=== PATIENT | female | born 1985 | race Caucasian/White ===

== ENCOUNTER → 2017-05-03 13:17 | Outpatient (CLI) | payer BC, SELFPAY ==
[2017-04-30 16:11] VITALS: BP 129/81
--- NOTE | 2017-05-03 13:55 | US_ITS ---
STUDY: FIRST TRIMESTER OBSTETRICAL ULTRASOUND REASON FOR EXAM: Female, 31 years old. Threatened . LMP: February 21, 2017. TECHNIQUE: Transvaginal PRIOR ULTRASOUND: None. FINDINGS: There is visualization of a single gestational sac in a normal intrauterine position. The mean sac diameter (MSD) measures 1.59 cm, indicating an estimated gestational age (EGA) of 6 weeks, 3 days. The gestational sac has an irregular oblong shape. There is no demonstrated yolk sac. The placenta is non-visualized. There is visualization of an embryo with no cardiac activity, consistent with intrauterine demise. The crown-rump length (CRL) measures 5 mm, indicating an estimated gestational age (EGA) of 60 weeks, 3 days. No embryonic cardiac activity noted. The estimated gestation age (EGA) by US is 6 weeks, 3 days. The estimated date of delivery (IRINA) by US is December 24, 2017.. The uterus measures 9.6 cm x 6.1 cm x 4.4 cm. There is no demonstrated uterine fibroid. The cervix is closed. The right ovary measures 2.7 cm x 1.8 cm 1.6 cm.. There is a 5 cm x 4.4 cm x 3.4 cm right ovarian cyst. The left ovary measures 3.5 cm x 3.6 cm x 3.2 cm. There is a 2.6 cm x 2.2 cm by 2.1 cm cyst in the ovary. There is no visualized left adnexal mass or complex lesion. There is no fluid in the cul de sac. US/Transvaginal w/Preg US IMPRESSION: Irregular intrauterine gestational sac with evidence of demise. Bilateral ovarian cysts more prominent on the right side. Electronically Signed: Rodger Davis MD at 15:13 EST Tel [phone], Service support ,
== END ==
PROVIDERS: Family Provider Family Medicine; PCP Family Medicine; Visit Provider Obstetrics & Gynecology
DX: O20.0 Threatened abortion (principal); Z3A.00 Weeks of gestation of pregnancy not specified
CPT/HCPCS: 76817

== ENCOUNTER 2017-05-10 14:59 | Day surgery (SDC) | payer BC, SELFPAY ==
[2017-04-30 16:11] VITALS: BP 129/81
[2017-05-08 10:18] LABS: Hematocrit 38.5 % (37-47); Hemoglobin 13.5 g/dl (12.0-15.0); Mean Corp Hgb Conc 35.1 g/gl (32-36); Mean Corpuscular Hgb 29.2 pg (27.0-32.0); Mean Corpuscular Volume 83.3 fL (81-99); Mean Platelet Vol. 9.8 fl (6.2-12.0); Platelet Count 256 K/mm3 (150-450); RBC Distribution Width CV 12.7 % (11.6-14.6); RBC Distribution Width SD 38.5 fl (35.1-43.9); Red Blood Count 4.62 M/mm3 (4.2-5.4); White Blood Count 7.2 K/mm3 (4.4-11.0)
[2017-05-08 10:42] LABS: Scan Indicated on CBC? Y/N NO
[2017-05-10] VITALS (7 sets, daily range): BP systolic 117–142; BP diastolic 65–81; PULSE 81–109; RESP 16–18; TEMP 36.9–37.2; O2SAT 96–100; BMI 35.2
[2017-05-10] MEDS: Doxycycline 100 MG CAPSULE PO (15:41)
--- NOTE | 2017-05-10 16:53 | PCM.OPRPT ---
Problem List (1) Missed Status: Acute Report of Operation Date of Procedure: 05/10/17 Pre-Operative Diagnosis: missed ab Post-Operative Diagnosis: same Surgery/Procedure Performed:: suction d and c Description of Surgical Findings:: 8 week missed ab Type of Anesthesia:: Local MAC Specimen's removed: poc Estimated Blood Loss (mL): 100 Fluids Replaced: crystalloid Description of Procedure: Patient was evaluated preoperatively and found to have a missed at 8 weeks of with no pole or yolk sac seen with no heart tones seen. She was followed for 2 weeks and still no yolk sac or pole developed patient was counseled and offered medical management versus surgical and patient chose suction D&C. Patient received IV anesthesia was prepped and draped in normal sterile fashion in the dorsal lithotomy position. Cervix was grasped with ring forceps and previously dilated to allow passage of a 9 mm suction curette. Uterus sounded 10 cm. Multiple passes were made with the suction curette to remove products of conception and then sharp curettage was formed to confirm all removal of packs of conception. All instruments were removed from the vagina and patient was awoken and taken recovery in stable condition. - Admit VTE Documentation VTE Present on Admission: No VTE Mechan Device Prophylaxis: SCD's
--- NOTE | 2017-05-10 16:56 | PCM.DC.D&C ---
Discharge Diet: No Restrictions Discharge Activity: Return to Normal Activity, May Shower, May Take a Tub Bath Allergies/Adverse Reactions: Allergies No Known Allergies Allergy (Verified 05/07/17 08:33) Medications to take at Discharge vitamin,calcium,uhnbygyw-cqnf-gpxsc acid tablet 1 tab PO ONCE 04/07/17 RhoGAM Ultra-Filtered PLUS 1,500 unit (300 mcg) intramuscular syringe 1,500 unit IM ONCE #1 NS 04/30/17 Primary Care Physician: Eduardo Yeung MD [Primary Care Provider] - Please Follow Up With: Regi Quevedo MD - [phone]
--- NOTE | 2017-05-11 | POC_PTH ---
PATIENT: ADRIAN VIRGEN LOC: [facility] [place][id number] AGE/SX: 31/F ROOM: RE05/10/[address]: Dr. Regi Quevedo MD : 1985 BED: DIS: 05/10/2017 SPEC #: [id number] RECD: 05/11/17 14:31 STATUS: FLORY DESMOND #: [id number] JAVIER: 05/11/17 00:[address]: Regi Quevedo DEPT: SURGICAL PATHOLOGY RECD BY: Prakash Moore ENTERED: 05/11/17 14:31 SP TYPE: PROD CONC OTHR DR: Dr. Eduardo Yeung MD Tissues: Product of conception, NOS Procedures: Surgery Specimen Level IV HEADER OPERATION: Dilation and curettage, suction PRE-OP DIAGNOSIS: Missed TISSUE SUBMITTED: Products of conception MICROSCOPIC DIAGNOSIS Endometrium, curettage: Chorionic villi, decidualized stroma and trophoblastic cells consistent with products of conception. AM:nicole 05/12/17 MICROSCOPIC DESCRIPTION Slides are reviewed. GROSS DESCRIPTION Received in fixative is one container labeled with the patient's name and designated products of conception. The specimen consists of multiple irregular fragments of light pink-rousseau soft tissue that in aggregate measure 7 x 5.5 x 0.6 cm. parts are not grossly recognized. Automation Machine Builder portions are submitted in one cassette. / AM:nicole 05/11/17 TC:5 CPT: 03116
== END 2017-05-10 18:19 | disposition home or self-care (01) ==
LOC: SDC 14:59 → AC 15:03
PROVIDERS: Family Provider Family Medicine; PCP Family Medicine; Visit Provider Obstetrics & Gynecology
PROC: (CPT 59820; principal; 2017-05-10 16:15)
DX: O02.1 Missed abortion (principal); J45.909 Unspecified asthma, uncomplicated; K21.9 Gastro-esophageal reflux disease without esophagitis; F32.9 Major depressive disorder, single episode, unspecified; Z3A.08 8 weeks gestation of pregnancy
CPT/HCPCS: 59820; 36415; 85027; 86850; 86870; 86900; 88305; J7120

== ENCOUNTER → 2018-01-20 13:59 | Outpatient (CLI) | payer BC, SELFPAY ==
[2018-01-20 14:26] LABS: Absolute Lymphocyte Count 2.67 X10^3/ul (0.83-4.51); Absolute Neutrophil Count 8.7 X10^3/uL (2.0-7.7); Basophil# 0.03 X10^3/uL; Basophil% 0.2 % (0-1); Eosinophil# 0.08 X10^3/uL; Eosinophils% 0.7 % (0-5); Hematocrit 37.3 % (37-47); Hemoglobin 13.5 g/dl (12.0-15.0); Lymphocyte # 2.67 X10^3/ul (4.0); Mean Corp Hgb Conc 36.2 g/gl (32-36); Mean Corpuscular Hgb 29.9 pg (27.0-32.0); Mean Corpuscular Volume 82.7 fL (81-99); Mean Platelet Vol. 10.1 fl (6.2-12.0); Monocyte# 0.59 X10^3/uL; Monocyte% 4.9 % (0-10); Neutrophil % 71.9 % (47-70); POSITIVE COUNT NO; POSITIVE DIFFERENTIAL NO; POSITIVE MORPHOLOGY NO; Platelet Count 277 K/mm3 (150-450); RBC Distribution Width CV 12.1 % (11.6-14.6); Red Blood Count 4.51 M/mm3 (4.2-5.4); White Blood Count 12.1 K/mm3 (4.4-11.0)
[2018-01-20 14:38] LABS: Glucose Challenge Gest 1H 50g 110 mg/dL (70-140)
[2018-01-20 15:29] LABS: HIV - WCH Non-Reactive (Nonreactive); Rubella IgG > 500.0 IU/mL
[2018-01-20 20:50] LABS: Chlamydia Trachomatis by PCR Negative (Negative); Neisserai gonorrhoeae by PCR Negative (Negative); Probe Check PASS; Sample Adequacy Control PASS; Specimen Processing Control PASS
[2018-01-21 04:14] LABS: Rapid Plasmin Reagin (RPR) NONREACTIVE (NONREACTIVE)
[2018-01-21 16:25] LABS: HEPATITIS B SURFACE AG Negative (Negative)
== END ==
PROVIDERS: Family Provider Family Medicine; PCP Family Medicine; Referring Provider Obstetrics & Gynecology; Visit Provider Obstetrics & Gynecology
DX: Z34.90 Encounter for supervision of normal pregnancy, unspecified, unspecified trimester (principal)
CPT/HCPCS: 36415; 82950; 85025; 86592; 86703; 86762; 86850; 86900; 87086; 87088; 87340; 87491; 87591

== ENCOUNTER → 2018-02-16 12:23 | Outpatient (CLI) | payer BC, SELFPAY ==
[2018-02-16 11:47] VITALS: BMI 35.4
== END ==
PROVIDERS: Family Provider Family Medicine; PCP Family Medicine; Referring Provider Obstetrics & Gynecology; Visit Provider Obstetrics & Gynecology
DX: Z36.9 Encounter for antenatal screening, unspecified (principal)
CPT/HCPCS: 36415

== ENCOUNTER → 2018-03-04 10:01 | Outpatient (CLI) | payer BC, SELFPAY ==
[2018-02-16 11:47] VITALS: BMI 35.4
== END ==
PROVIDERS: Family Provider Family Medicine; PCP Family Medicine; Visit Provider Obstetrics & Gynecology
DX: Z36.9 Encounter for antenatal screening, unspecified (principal)
CPT/HCPCS: 36415

== ENCOUNTER → 2018-04-11 12:22 | Outpatient (CLI) | payer BC, SELFPAY ==
[2018-04-11 11:49] VITALS: BMI 35.4
--- NOTE | 2018-04-11 12:22 | CT_ITS ---
STUDY: CT ABDOMEN AND PELVIS WITH CONTRAST REASON FOR EXAM: Female, 32 years old. Pelvic pain. Right ovarian cyst. . Scan approved by DIRECTOR GLOBAL MARKET RESEARCH and on-site radiologist. RADIATION DOSAGE (If Supplied By Facility): CTDIvol = ( 16.29 ) mGy, DLP = ( 1145.84 ) mGycm TECHNIQUE: Transaxial images were obtained from the dome of the diaphragm to the symphysis pubis without oral contrast. 100ml ml of Isovue 300 contrast was administered. Sagittal and coronal images were reconstructed. Individualized dose optimization techniques were used for this CT. COMPARISON: None. FINDINGS: The visualized lung bases are clear. The visualized portions of the heart and pericardium are within normal limits. There are no calcified gallstones present. There are subcentimeter hypodensities in the liver which are too small to characterize. However, these likely represent cysts. The spleen is normal in size. The pancreas is within normal limits. The adrenal glands are within normal limits. There are no renal or ureteral stones. There is no hydronephrosis. There are no focal renal lesions. Normal visualized stomach. There is no bowel obstruction or inflammation. The appendix is visualized and appears normal. The aorta is normal in caliber. There is right lower quadrant mesenteric lymphadenopathy noted. There is no free air, free fluid or fluid collection. There is a 4.6 x 4.2 cm cyst arising from the right ovary. There is a gravid uterus noted. There are no destructive osseous lesions. CT/Abdomen/Pelvis WITH Contrast IMPRESSION: Gravid uterus. Please note that this examination does not evaluate the fetus. 4.2 x 4.6 cm right ovarian cyst. Right lower quadrant mesenteric lymphadenopathy. This may represent mesenteric adenitis. No bowel obstruction or inflammation. Normal appendix. Normal kidneys. No hydronephrosis. No calcified gallstones. Electronically Signed: Buddy Goodwin, at 15:09 EST Tel , Service support ,
[2018-04-11 13:52] LABS: Absolute Lymphocyte Count 1.41 X10^3/ul (0.83-4.51); Absolute Neutrophil Count 13.3 X10^3/uL (2.0-7.7); Basophil# 0.02 X10^3/uL; Basophil% 0.1 % (0-1); Eosinophil# 0.02 X10^3/uL; Eosinophils% 0.1 % (0-5); Hematocrit 38.7 % (37-47); Hemoglobin 13.6 g/dl (12.0-15.0); Lymphocyte # 1.41 X10^3/ul (4.0); Lymphocyte % 9.1 % (19-41); Mean Corp Hgb Conc 35.1 g/gl (32-36); Mean Corpuscular Volume 85.2 fL (81-99); Mean Platelet Vol. 10.6 fl (6.2-12.0); Monocyte# 0.64 X10^3/uL; Monocyte% 4.1 % (0-10); Neutrophil # 13.32 X10^3/uL (2.7-7.7); Neutrophil % 86.3 % (47-70); Platelet Count 276 K/mm3 (150-450); RBC Distribution Width CV 12.8 % (11.6-14.6); RBC Distribution Width SD 38.6 fl (35.1-43.9); Red Blood Count 4.54 M/mm3 (4.2-5.4); White Blood Count 15.5 K/mm3 (4.4-11.0)
[2018-04-11 14:11] LABS: POSITIVE COUNT NO; POSITIVE DIFFERENTIAL NO; POSITIVE MORPHOLOGY NO
== END ==
PROVIDERS: Family Provider Family Medicine; PCP Family Medicine; Referring Provider Nurse Practitioner Women's Health
DX: O26.899 Other specified pregnancy related conditions, unspecified trimester (principal); R10.31 Right lower quadrant pain
CPT/HCPCS: 36415; 74177; 85025; Q9967

== ENCOUNTER → 2018-04-11 16:18 | Outpatient (CLI) | payer BC, SELFPAY ==
[2018-04-11 11:49] VITALS: BMI 35.4
--- NOTE | 2018-04-11 16:20 | US_ITS ---
STUDY: SECOND AND THIRD TRIMESTER OBSTETRICAL ULTRASOUND - LIMITED REASON FOR EXAM: Female, 32 years old. Lower pelvic pain. LMP: 11/16/2017 PRIOR ULTRASOUND: None. TECHNIQUE: Transabdominal ultrasound evaluation was performed. FINDINGS: There is a single intrauterine fetus. The fetus is in a cephalic presentation. There is demonstrated cardiac activity with a heart rate of 150 bpm. There is a normal amniotic fluid volume. The placenta is anterior in location and is not low lying. There are Grade 0 placental changes. The cervix measures 3.6 cm in length. BIOMETRY: BPD: 4.87: 20 weeks, 6 days HC: 18.69: 21 weeks, 1 days AC: 15.47: 20 weeks, 5 days FL: 3.27: 20 weeks, 2 days The left ovary measures 3.4 x 2.2 x 1.5 cm and is normal in echotexture. There is normal Doppler flow demonstrated to the left ovary. The right ovary measures 6.4 x 5.6 x 4.0 cm. There is a 4.9 x 4.4 cm complex cyst in the right ovary. There is normal Doppler flow demonstrated to the right ovary. age by current US: 20 weeks, 6 days. IRINA by current US: 08/23/2018. Estimated weight: 359 grams, +/- 52 grams, 28 percentile. US/OB Limited With Biometrics IMPRESSION: Single live intrauterine gestation at approximately 20 weeks and 6 days based on the current ultrasound. 4.9 x 4.4 cm complex cyst in the right ovary. Electronically Signed: Buddy Goodwin, at 18:07 EST Tel , Service support ,
== END ==
PROVIDERS: Family Provider Family Medicine; PCP Family Medicine; Referring Provider Nurse Practitioner Women's Health; Visit Provider Nurse Practitioner Women's Health
DX: R10.31 Right lower quadrant pain (principal); R10.2 Pelvic and perineal pain
CPT/HCPCS: 76816; 87086; 87088

== ENCOUNTER → 2018-05-31 11:18 | Outpatient (CLI) | payer BC, SELFPAY ==
[2018-05-31 11:02] VITALS: BMI 35.4
[2018-05-31 12:08] LABS: Absolute Lymphocyte Count 1.66 X10^3/ul (0.83-4.51); Absolute Neutrophil Count 8.3 X10^3/uL (2.0-7.7); Basophil# 0.02 X10^3/uL; Basophil% 0.2 % (0-1); Eosinophil# 0.09 X10^3/uL; Eosinophils% 0.9 % (0-5); Hematocrit 34.6 % (37-47); Hemoglobin 11.9 g/dl (12.0-15.0); Lymphocyte # 1.66 X10^3/ul (4.0); Lymphocyte % 15.7 % (19-41); Mean Corp Hgb Conc 34.4 g/gl (32-36); Mean Corpuscular Hgb 29.8 pg (27.0-32.0); Mean Corpuscular Volume 86.7 fL (81-99); Mean Platelet Vol. 9.6 fl (6.2-12.0); Monocyte# 0.44 X10^3/uL; Monocyte% 4.2 % (0-10); Neutrophil # 8.33 X10^3/uL (2.7-7.7); Neutrophil % 78.7 % (47-70); Platelet Count 238 K/mm3 (150-450); RBC Distribution Width CV 13.1 % (11.6-14.6); RBC Distribution Width SD 41.7 fl (35.1-43.9); Red Blood Count 3.99 M/mm3 (4.2-5.4); White Blood Count 10.6 K/mm3 (4.4-11.0)
[2018-05-31 12:10] LABS: POSITIVE COUNT NO; POSITIVE DIFFERENTIAL NO; POSITIVE MORPHOLOGY NO
[2018-05-31 12:31] LABS: Glucose Challenge Gest 1H 50g 105 mg/dL (70-140)
== END ==
PROVIDERS: Family Provider Family Medicine; PCP Family Medicine; Referring Provider Nurse Practitioner Women's Health; Visit Provider Nurse Practitioner Women's Health
DX: Z34.90 Encounter for supervision of normal pregnancy, unspecified, unspecified trimester (principal)
CPT/HCPCS: 36415; 82950; 85025; 86850; 86900

== ENCOUNTER → 2018-07-28 15:59 | Outpatient (CLI) | payer BC, SELFPAY ==
[2018-07-28 09:10] VITALS: BMI 35.4
== END ==
PROVIDERS: Family Provider Family Medicine; PCP Family Medicine; Referring Provider Nurse Practitioner Women's Health; Visit Provider Nurse Practitioner Women's Health
DX: Z34.90 Encounter for supervision of normal pregnancy, unspecified, unspecified trimester (principal)
CPT/HCPCS: 87077; 87081; 87186

== ENCOUNTER 2018-08-21 22:43 | Inpatient (IN) | payer BC, SELFPAY ==
[2018-07-12 11:40] VITALS: BMI 35.4
[2018-08-17 10:09] VITALS: BMI 38.0
[2018-08-21 23:09] VITALS: BMI 38.5
[2018-08-21] MEDS: Lactated Ringers 1,000 ML 50 ML IV (23:24)
[2018-08-21 23:34] LABS: Absolute Lymphocyte Count 1.86 X10^3/ul (0.83-4.51); Absolute Neutrophil Count 10.4 X10^3/uL (2.0-7.7); Basophil# 0.01 X10^3/uL; Basophil% 0.1 % (0-1); Eosinophil# 0.07 X10^3/uL; Eosinophils% 0.5 % (0-5); Hematocrit 36.3 % (37-47); Hemoglobin 12.7 g/dl (12.0-15.0); Lymphocyte # 1.86 X10^3/ul (4.0); Lymphocyte % 14.2 % (19-41); Mean Corpuscular Hgb 28.5 pg (27.0-32.0); Mean Corpuscular Volume 81.4 fL (81-99); Mean Platelet Vol. 11.4 fl (6.2-12.0); Monocyte# 0.73 X10^3/uL; Monocyte% 5.6 % (0-10); Neutrophil # 10.36 X10^3/uL (2.7-7.7); Neutrophil % 79.4 % (47-70); Platelet Count 269 K/mm3 (150-450); RBC Distribution Width CV 13.2 % (11.6-14.6); RBC Distribution Width SD 37.9 fl (35.1-43.9); Red Blood Count 4.46 M/mm3 (4.2-5.4); White Blood Count 13.1 K/mm3 (4.4-11.0)
[2018-08-21 23:38] LABS: POSITIVE COUNT NO; POSITIVE DIFFERENTIAL NO; POSITIVE MORPHOLOGY NO
[2018-08-21 23:44] LABS: AST(SGOT) 21 U/L (15-37); Alanine Aminotransfer ALT/SGPT 17 U/L (13-56); Creatinine, Serum 0.79 mg/dL (0.55-1.02); EST Glomerular Filtration Rate 90 mL/min (>60); Est Glom Filt Rate - Afr Amer 109 mL/min (>60); Estimated Creatinine Clearance 100.34 ml/min; Uric Acid 6.3 mg/dL (2.6-6.0)
[2018-08-22] MEDS: Lactated Ringers 1,000 ML 50 ML IV (00:40)
[2018-08-22] MEDS: fentaNYL-bupivacaine (epidural) 100 ML BAG EPIDURAL (00:42)
[2018-08-22 01:40] LABS: International Normalized Ratio 0.9; Partial Thromboplast Time 26.4 Seconds (24.1-36.2); Prothrombin Time (Protime)PT. 12.3 SECONDS (11.7-14.9)
[2018-08-22] MEDS: Oxytocin 30 units/NS 500 ml 30 UNITS/500 ML IV.SOLN 334 UNITS IV (01:49)
--- NOTE | 2018-08-22 02:17 | PCM.HP.OB ---
- Problem List (1) Active labor at term Status: Acute (2) Positive GBS test Status: Acute Comment: treat in labor (3) Depression with anxiety Status: Acute Comment: recommend counseling, ordered zoloft (4) screening encounter Status: Acute Comment: AFP negative (5) Obesity affecting Status: Acute Qualifiers: Comment: 1 tm glucola normal. discussed healthy weight gain recommendations (6) Status: Acute Qualifiers: Comment: sequential and anatomy scan desired. carrier screening declined. [facility] anatomy US scheduled (7) Family history of congenital heart defect Status: Acute Comment: nephew with abnormalities, nl echo (8) Rh negative status during Status: Acute Qualifiers: Comment: rhogam PRN (9) Supervision of normal Status: Acute Qualifiers: Comment: PRR IRINA 08/23/18 girl Vic History Date of Admission: 08/22/18 Final IRINA: 08/23/18 Gestational age: 39 Weeks and 6 Days History of this : This is a 32 year-old, , at 39 weeks gestational age presents IAL. she admits regular contractions for several hours, some bloody show but no lof. she has had an uncomplicated . Medical History: Medical History (Last Reviewed 08/17/18 @ 10:08 by Judy Lee) Depression F32.9 Surgical History: Surgical History (Last Reviewed 08/17/18 @ 10:08 by Judy Lee) H/O hemorrhoidectomy Z98.890 History of tonsillectomy and adenoidectomy Z98.890 History of wisdom tooth extraction, class II edentulism K08.492 history of cyst removal on right middle digit history of flex sig with hemmroid cardirazation Allergies No Known Allergies Allergy (Verified 08/17/18 10:08) Home Medications: Home Medications vitamin,calcium,xltnzaas-sqow-xxmbo acid tablet 1 tab PO ONCE 04/07/17 RhoGAM Ultra-Filtered PLUS 1,500 unit (300 mcg) intramuscular syringe 1,500 unit IM ONCE #1 NS 04/30/17 sertraline 50 mg tablet 50 mg PO QDAY #30 tab 05/12/18 nystatin 100,000 unit/gram topical powder 1 applic TOPICAL BID #30 g 08/17/18 Smoking Status: Never smoker Alcohol: None Number of Fetus(es): 1 Heart Tracins moderate variability reactive no decelerations category I tracing Mucarabones: regular History Past Pregnancies: Past Pregnancies Delivery Date Name GA/Weeks Outcome Route Weight Gender Labor Length Anesthesia Delivery Location Provider FOB Labs: Mom's Labs & Results 08/21/18 08/21/18 08/21/18 23:15 23:15 23:15 WBC 13.1 H RBC 4.46 Hgb 12.7 Hct 36.3 L MCV 81.4 MCH 28.5 MCHC 35.0 RDW 13.2 RDW Differential 37.9 Plt Count 269 MPV 11.4 Immature Gran % (Auto) 0.200 Neut % (Auto) 79.4 H Lymph % (Auto) 14.2 L Cr[place] % (Auto) 5.6 Eos % (Auto) 0.5 Baso % (Auto) 0.1 Absolute Neuts (auto) 10.4 H Absolute Lymphs (auto) 1.86 Total Counted Not Reportable PT Cancelled INR Cancelled APTT Cancelled Creatinine Estim Creat Clear Calc Est GFR (MDRD) Af Amer Est GFR (MDRD) Non-Af Uric Acid AST ALT Blood Type O NEGATIVE Antibody Screen NEGATIVE 08/21/18 08/22/18 23:15 01:20 WBC RBC Hgb Hct MCV MCH MCHC RDW RDW Differential Plt Count MPV Immature Gran % (Auto) Neut % (Auto) Lymph % (Auto) Cr[place]enden % (Auto) Eos % (Auto) Baso % (Auto) Absolute Neuts (auto) Absolute Lymphs (auto) Total Counted PT 12.3 INR 0.9 APTT 26.4 Creatinine 0.79 Estim Creat Clear Calc 100.34 Est GFR (MDRD) Af Amer 109 Est GFR (MDRD) Non-Af 90 Uric Acid 6.3 H AST 21 ALT 17 Blood Type Antibody Screen Course Did the patient receive Yes care? Labs Blood Type: O RH: NEGATIVE RPR/VDRL/Syphilis Nonreactive Rubella status Immune HbSAg Negative Date Done: 01/20/18 Chlamydia Negative Gonorrhea Negative HIV/AIDS Non-Reactive Group B Strep: Positive Current Obstetrical History Gestational Diabetes No Incompetent Cervix No Infertility No IUGR No Macrosomia No Hypertension/Pre-eclampsia No Placenta Previa/Abruption No PTL/PROM No Uterine anomaly No Oligohydramnios No Polyhydramnios No Multiple gestation No Past Medical History Asthma Yes: activity induced Diabetes No Hypertension No Heart disease No Mitral valve prolapse No Neurologic/Seizure disorder/ No Migraines Kidney disease No Liver disease No Varicosities No Clotting disorders/Hx of DVT No Thyroid Dysfunction No Other medical diseases No Psychiatric disorders Yes: depression Major trauma No Abnormal PAP smear No Sleep apnea No Mammogram in the last 2 years No Social History Marital Status: Alleged father Vic Hx Smoking No Smoking Status Never smoker Expected Delivery Method: Spontaneous Vaginal Review of Systems Constitutional: Denies: Fever, Malaise Eyes: Denies: Blurred vision, Vision Change HEENT: Denies: Head Aches, Visual Changes Cardiovascular: Denies: Chest Pain, Palpitations Respiratory: Denies: Cough, Shortness of Breath, Wheezing Gastrointestinal: Denies: Abdominal Pain, Diarrhea, Nausea, Vomiting Genitourinary: Denies: Dysuria, Hematuria Musculoskeletal: Denies: Joint Pain, Muscle pain Skin: Denies: Lesions, Rash Neurological: Denies: Blurred vision, Focal weakness, Headaches Psychiatric: Denies: Anxiety, Depression Endocrine: Denies: Heat/ Cold Intolerance Hematologic/ Lymphatic: Denies: Easy Bruising, Easy Bleeding Physical Exam General: Alert, Cooperative, No apparent distress HEENT: Atraumatic, Normocephalic. Negative for: Thyromegaly, Lymphadenopathy Cardiovascular: Regular rate Lungs: Normal air movement Abdomen: Soft, Non Tender, Gravid Neurological: Deep Tendon Reflexes 2+/4 and Symmetrical, Neuro grossly intact. Negative for: Clonus GRADUATE STUDENT INSTRUCTOR: Normal external genitalia. Negative for: Vulvar lesions Estimated gestational size: Appropriate for gestational size Presentation: Cephalic Cervix Dilation (cm): 5 Assessment/Plan All Active Problems (Last Reviewed 08/17/18 @ 10:08 by Judy Lee) Active labor at term (Acute) Positive GBS test (Acute) Depression with anxiety (Acute) screening encounter (Acute) Obesity affecting (Acute) (Acute) Family history of congenital heart defect (Acute) Rh negative status during (Acute) Supervision of normal (Acute) BMI 36.0-36.9,adult (Resolved) Missed (Resolved) Threatened in first trimester (Resolved) This is a 32 year-old, at 39 weeks gestational age presents IAL Patient presents IAL, plan expectant management for . arom clear fluid. Pain management: plans epidural. GBS positive plan IV PCN. Management of any complications: none I have reviewed the [facility] and made any clinically relevant updates.
[2018-08-22] MEDS: Oxytocin 30 units/NS 500 ml 30 UNITS/500 ML IV.SOLN 167 UNITS IV (02:19)
--- NOTE | 2018-08-22 02:20 | PCM.OPRPT ---
Problem List (1) Active labor at term Status: Acute (2) Positive GBS test Status: Acute Comment: treat in labor (3) Depression with anxiety Status: Acute Comment: recommend counseling, ordered zoloft (4) screening encounter Status: Acute Comment: AFP negative (5) Obesity affecting Status: Acute Qualifiers: Comment: 1 tm glucola normal. discussed healthy weight gain recommendations (6) Status: Acute Qualifiers: Comment: sequential and anatomy scan desired. carrier screening declined. M anatomy US scheduled (7) Family history of congenital heart defect Status: Acute Comment: nephew with abnormalities, nl echo (8) Rh negative status during Status: Acute Qualifiers: Comment: rhogam PRN (9) Supervision of normal Status: Acute Qualifiers: Comment: PRR IRINA 08/23/18 girl Vic Vaginal Delivery Maternal Presentation: Active Labor 32-year-old G2, P0 at 39 weeks 6 days presents in active labor Amniotic Membrane Rupture Type: Artificial Amniotic Fluid Description: Clear Final IRINA: 08/23/18 Gestational age: 39 Weeks and 6 Days Date of Procedure: 08/22/18 Pre-Operative Diagnosis: In active labor Post-Operative Diagnosis: Same Surgery/ Procedure Performed: Spontaneous Vaginal Delivery Type of Anesthesia: Epidural, Local with 1% lidocaine Description of Procedure: Patient began pushing and delivered the head in the PAT presentation. The head was delivered atraumatically and a loose nuchal cord ?1 was identified and easily reduced over the infant's head. The anterior and posterior shoulders delivered without complication followed by the rest of the infant and the infant was placed on the maternal abdomen. Delayed cord clamping was employed for approximately 60 seconds. Cord was clamped and cut and gentle traction was applied to the cord and the placenta delivered spontaneously immediately following it was noted to be intact with three-vessel cord. The perineum and vagina were inspected and noted to have a second-degree perineal laceration was repaired in the usual fashion with 3-0 Vicryl repeat. EBL was 400 cc. Patient and tolerated delivery well. Presentation: PAT Placental Delivery Description: Spontaneous Placenta Disposition: [facility] Cord Vessel Description: 3 Vessels Cord Entanglement: Around neck x 1, loose Estimated Blood Loss: 400 Infant A gender: Female Episiotomy Description: None Laceration: Perineal Extension/lac, 2nd degree Medications given after delivery: IV Pitocin Complications: None
[2018-08-22] MEDS: Acetaminophen 500 MG Tablet 1000 MG PO (05:51)
[2018-08-22 08:30] VITALS: BP 122/76; PULSE 76; RESP 18; TEMP 37.8
[2018-08-22 12:00] VITALS: BP 139/91; PULSE 77; RESP 16; TEMP 37.3
[2018-08-22 16:00] VITALS: BP 115/72; PULSE 68; RESP 18; TEMP 37.5
[2018-08-22] MEDS: Naproxen 250 MG Tablet 500 MG PO (17:45)
[2018-08-22 20:15] VITALS: BP 130/82; PULSE 72; RESP 16; TEMP 36.7
[2018-08-22 23:39] VITALS: BP 108/60; PULSE 80; RESP 16; TEMP 36.6
[2018-08-23 02:45] VITALS: BP 123/80; PULSE 69; RESP 16; TEMP 36.4
[2018-08-23] MEDS: Naproxen 250 MG Tablet 500 MG PO (02:52)
[2018-08-23 08:00] VITALS: BP 121/87; PULSE 68; RESP 18; TEMP 36.1
--- NOTE | 2018-08-23 08:05 | PCM.PN.OB ---
Patient Problems: Active and Suspected Problems (Last Reviewed 08/17/18 @ 10:08 by Judy Lee) Active labor at term (Acute) Subjective: doing well no complaints pain controlled no CP SOB N V ambulating well tolerating po lochia moderate, going well - Physical Exam General: Alert, Oriented x3 Abdomen: Soft, Non Tender, Non-Distended, - - FF below U Vital Signs Temp Pulse Resp BP 97.6 F L 69 16 123/80 H 08/23/18 02:45 08/23/18 02:45 08/23/18 02:45 08/23/18 02:45 Weight: 246 lb Body Mass Index (BMI) 38.5 Intake and Output for Last 24 Hours 08/21/18 08/22/18 08/23/18 23:59 23:59 23:59 Intake Total 1847 / 1847 Output Total 1100 / 1100 Balance 747 / 747 Medical Necessity - Tobacco Use Smoking Status: Never smoker Assessment/Plan All Active Problems (Last Reviewed 08/17/18 @ 10:08 by Judy Lee) Active labor at term (Acute) Positive GBS test (Acute) Depression with anxiety (Acute) screening encounter (Acute) Obesity affecting (Acute) (Acute) Family history of congenital heart defect (Acute) Rh negative status during (Acute) Supervision of normal (Acute) BMI 36.0-36.9,adult (Resolved) Missed (Resolved) Threatened in first trimester (Resolved) s/p PPD # 1 1. routine post delivery care 2. breast feeding- support given 3. rh positive 4. rubella immune 5. home today
--- NOTE | 2018-08-23 08:08 | PCM.DCVAG ---
Additional Instructions: If you experience any of the following, contact your healthcare provider. Bleeding that soaks a pad every hour for 2 hours Fever 100.4 or higher Unrelieved incision or abdominal pain Swelling, redness, discharge or bleeding from your incision or episiotomy site Your incision begins to separate Problems urinating (including inability to urinate or burning while urinating). Visual changes Severe headache Flu-like symptoms Pain or redness in one of both of your breasts Pain, warmth, tenderness or swelling in your legs, especially the calf area Frequent nausea and vomiting Symptoms of depression or anxiety If you experience any of the following, call 911 or go to the nearest Emergency Room. Chest pain Problems breathing Seizure activity Partial or complete paralysis of a body part, slurred speech, weakness or drooping of the face, or a sudden inability to walk or hold your balance Allergies/Adverse Reactions: Allergies No Known Allergies Allergy (Verified 08/22/18 05:25) Medications to take at Discharge vitamin,calcium,znagmtgf-jhel-szqyb acid tablet 1 tab PO ONCE 04/07/17 RhoGAM Ultra-Filtered PLUS 1,500 unit (300 mcg) intramuscular syringe 1,500 unit IM ONCE #1 NS 04/30/17 nystatin 100,000 unit/gram topical powder 1 applic TOPICAL BID #30 g 08/17/18 Sertraline HCl 50 mg PO QDAY 08/22/18 Sennosides/Docusate Sodium [Senna-Docusate Sodium Tablet] 1 each PO BID PRN PRN #30 tablet 08/23/18 The following prescriptions were given: Sennosides/Docusate Sodium [Senna-Docusate Sodium Tablet] 1 each PO BID PRN PRN #30 tablet PRN Reason: Constipation Primary Care Physician: Eduardo Yeung MD [Primary Care Provider] - Test Results: Test results from this visit will be discussed in further detail at your follow-up appointment, if applicable.
--- NOTE | 2018-08-23 08:09 | DCINST_ITS ---
Additional Instructions: If you experience any of the following, contact your healthcare provider. * Bleeding that soaks a pad every hour for 2 hours * Fever 100.4 or higher * Unrelieved incision or abdominal pain * Swelling, redness, discharge or bleeding from your incision or episiotomy site * Your incision begins to separate * Problems urinating (including inability to urinate or burning while urinating). * Visual changes * Severe headache * Flu-like symptoms * Pain or redness in one of both of your breasts * Pain, warmth, tenderness or swelling in your legs, especially the calf area * Frequent nausea and vomiting * Symptoms of depression or anxiety If you experience any of the following, call 911 or go to the nearest Emergency Room. * Chest pain * Problems breathing * Seizure activity * Partial or complete paralysis of a body part, slurred speech, weakness or drooping of the face, or a sudden inability to walk or hold your balance Allergies/Adverse Reactions: Allergies No Known Allergies Allergy (Verified 08/22/18 05:25) Medications to take at Discharge vitamin,calcium,uwtiojdz-uouj-eoxum acid tablet 1 tab PO ONCE 04/07/17 RhoGAM Ultra-Filtered PLUS 1,500 unit (300 mcg) intramuscular syringe 1,500 unit IM ONCE #1 NS 04/30/17 nystatin 100,000 unit/gram topical powder 1 applic TOPICAL BID #30 g 08/17/18 Sertraline HCl 50 mg PO QDAY 08/22/18 Sennosides/Docusate Sodium [Senna-Docusate Sodium Tablet] 1 each PO BID PRN PRN #30 tablet 08/23/18 The following prescriptions were given: Sennosides/Docusate Sodium [Senna-Docusate Sodium Tablet] 1 each PO BID PRN PRN #30 tablet PRN Reason: Constipation Primary Care Physician: Eduardo Yeung MD [Primary Care Provider] - Test Results: Test results from this visit will be discussed in further detail at your follow- up appointment, if applicable.
[2018-08-23] MEDS: Senna/Docusate Sodium 1 Tablet PO (10:49)
[2018-08-23] MEDS: Dibucaine 30 GM Tube 1 APPLIC TOPICAL (10:50)
[2018-08-23 14:00] VITALS: BP 124/81; PULSE 84; RESP 16; TEMP 36.1
--- NOTE | 2018-08-28 13:33 | NURSING ---
On follow up phone call mother states doing well . Baby had follow up with baby doctor and doing well. States all the nurses were great.
== END 2018-08-23 14:45 | disposition home or self-care (01) | DRG 807 ==
PROVIDERS: Admitting Provider Obstetrics & Gynecology; Family Provider Family Medicine; PCP Family Medicine; Referring Provider Obstetrics & Gynecology; Visit Provider Obstetrics & Gynecology
DX: O99.824 Streptococcus B carrier state complicating childbirth (principal); O70.1 Second degree perineal laceration during delivery; O69.81X0 Labor and delivery complicated by cord around neck, without compression, not applicable or unspecified; O99.214 Obesity complicating childbirth; O99.52 Diseases of the respiratory system complicating childbirth; J45.909 Unspecified asthma, uncomplicated; O99.344 Other mental disorders complicating childbirth; F32.9 Major depressive disorder, single episode, unspecified; K21.9 Gastro-esophageal reflux disease without esophagitis; Z3A.39 39 weeks gestation of pregnancy; Z37.0 Single live birth
CPT/HCPCS: 59025; 59050; 82565; 84450; 84460; 84550; 85025; 85610; 85730; 86850; 86900; 99218; J7120; G0378

== ENCOUNTER → 2019-10-17 15:43 | Outpatient (CLI) | payer BC, SELFPAY ==
[2019-10-09 08:55] VITALS: BMI 38.5
[2019-10-17 17:05] LABS: hCG Titer Quant., Serum 589 mIU/mL (1-3)
== END ==
PROVIDERS: PCP Family Medicine; Referring Provider Obstetrics & Gynecology; Visit Provider Obstetrics & Gynecology
DX: O20.0 Threatened abortion (principal); Z3A.00 Weeks of gestation of pregnancy not specified
CPT/HCPCS: 36415; 84702; 86850; 86900; 86901

== ENCOUNTER → 2019-10-19 13:17 | Outpatient (CLI) | payer BC, SELFPAY ==
[2019-10-18 08:59] VITALS: BMI 38.5
[2019-10-19 15:14] LABS: hCG Titer Quant., Serum 279 mIU/mL (1-3)
[2019-10-24 08:08] LABS: Dilute Prothrombin Time (dPT) 43.3 sec (0.0-55.0); Dilute Russell Viper Venom 59.4 sec (0.0-47.0); PTT-LA 41.3 sec (0.0-51.9); Thrombin Time 24.5 sec (0.0-23.0); dPT Confirm Ratio 1.72 Ratio (0.00-1.40)
[2019-10-24 12:34] LABS: Anti-Cardiolipin Ab, IgA, Qn < 9 APL U/mL (0-11); Anti-Cardiolipin Ab, IgG, Qn < 9 GPL U/mL (0-14); Anti-Cardiolipin Ab, IgM, Qn < 9 MPL U/mL (0-12); Beta-2-Glycoprotein I IgA <9 (0-25); Beta-2-Glycoprotein I IgG <9 (0-20); Beta-2-Glycoprotein I IgM <9 (0-32); Interpretation Comment: (.)
== END ==
PROVIDERS: PCP Family Medicine; Referring Provider Obstetrics & Gynecology; Visit Provider Obstetrics & Gynecology
DX: O20.0 Threatened abortion (principal); Z3A.00 Weeks of gestation of pregnancy not specified
CPT/HCPCS: 36415; 84702; 86146; 86147

== ENCOUNTER → 2019-11-15 17:06 | Outpatient (CLI) | payer BC, SELFPAY ==
[2019-11-15 09:52] VITALS: BMI 36.8
[2019-11-20 21:39] LABS: HPV APTIMA, High Risk Negative (Negative)
== END ==
PROVIDERS: PCP Family Medicine; Referring Provider Nurse Practitioner Women's Health; Visit Provider Nurse Practitioner Women's Health
DX: Z12.4 Encounter for screening for malignant neoplasm of cervix (principal)
CPT/HCPCS: 87624; 88175; G0145

== ENCOUNTER → 2020-09-11 09:07 | Outpatient (CLI) | payer BC, SELFPAY ==
[2020-02-07 14:03] VITALS: BMI 35.0
--- NOTE | 2020-09-11 09:11 | RAD_ITS ---
CLINICAL HISTORY: Female, 34 years old. Chronic left hip pain. PROCEDURE: ARTHROGRAM - LEFT HIP CONSENT: The procedure as well as benefits and possible complications including infection and bleeding were explained to the patient. Informed consent was obtained. FLUOROSCOPY TIME (if supplied): (51 seconds) minutes/seconds Injection Information: 10 cc of dilute MRI contrast. Number of images obtained: 1 TECHNIQUE: (All elements of maximal sterile barrier technique followed, including US elements as applicable) The patient was in the supine position. The overlying skin was prepped and draped in the usual sterile fashion. Following local anesthetic complication and under direct fluoroscopic guidance, a 22-gauge spinal needle was placed into the left hip joint. 2 cc of ISOVUE-300 was injected for confirmation. Following this, 10 cc of dilute MRI contrast was injected. MRI will follow. The patient tolerated the procedure well. RAD/Arthrogram Hip w/ MRI IMPRESSION: Successful left hip arthrogram with injection of 10 cc of dilute MR contrast for MRI examination. Electronically Signed: Rodger Davis MD at 10:35 EDT , Service support ,
--- NOTE | 2020-09-11 10:16 | MRI_ITS ---
STUDY: MR LEFT HIP ARTHROGRAPHY REASON FOR EXAM: Left hip pain for 2-3 years. TECHNIQUE: Standardized fat and water weighted pulse sequences were obtained in all 3 orthogonal planes after intra-articular instillation of 0.08 milliliters of dilute gadolinium. COMPARISON: Fluoroscopic image from arthrogram preceding the MRI. FINDINGS: Normal hip joint without articular joint space narrowing. Normal acetabulum. There is a tear of the anterior labrum (HELDER image 9). Normal femoral head. Normal femoral neck and intratrochanteric region. Normal gluteus minimus, medius and iliopsoas tendons and distal insertions. There is no trochanteric, iliopsoas or iliopectineal bursitis. Normal visualized superior and inferior pubic rami. Normal ischial tuberosity. Normal origin of the hamstring tendons. Normal visualized iliac wing. Normal visualized soft tissue structures of the pelvis. MRI/Lower Ext/Jt Only/W Contrast IMPRESSION: Labral tear. Electronically Signed: Matt Beck MD at 11:35 EDT Tel , Service support ,
== END ==
PROVIDERS: PCP Family Medicine; Referring Provider Physician Assistant Surgical; Visit Provider Physician Assistant Surgical
DX: M25.552 Pain in left hip (principal)
CPT/HCPCS: 27093; 73722; 77002; A9575; Q9967

== ENCOUNTER → 2020-11-06 15:04 | Outpatient (CLI) | payer BC, SELFPAY ==
[2020-02-07 14:03] VITALS: BMI 35.0
--- NOTE | 2020-11-06 15:04 | US_ITS ---
INDICATION: well being EXAMINATION: US OB Less Than 14 Weeks TECHNIQUE: Transabdominal pelvic ultrasound was performed. Grayscale, spectral waveform, and color flow Doppler evaluation of the adnexa. COMPARISON: None. FINDINGS: UTERUS: Measures 12.3 x 8.7 x 5.9 cm. RIGHT OVARY: Measures 4.2 x 2.7 x 2.3 cm. Normal. LEFT OVARY: Measures 3.3 x 2.4 x 1.7 cm. Normal. FREE FLUID: None. INTRAUTERINE GESTATIONAL SAC(s) (size/shape): Single. . YOLK SAC: Identified POLE: Identified CRL 2.6 cm. ESTIMATED GESTATION AGE: 8 weeks 5 days. HEART MOTION: 171 bpm. PLACENTA: Not visualized due to age. SUBCHORIONIC HEMORRHAGE: None. AMNIOTIC FLUID: Qualitatively normal. US/Init OB < 14Wks US IMPRESSION: Single live intrauterine . Estimated gestational age is 8 weeks 5 days. Electronically Signed: Scott Fuller MD at 17:51 EDT Tel , Service support ,
== END ==
PROVIDERS: PCP Family Medicine; Referring Provider Obstetrics & Gynecology; Visit Provider Obstetrics & Gynecology
DX: O09.91 Supervision of high risk pregnancy, unspecified, first trimester (principal); Z3A.08 8 weeks gestation of pregnancy
CPT/HCPCS: 76801

== ENCOUNTER → 2020-11-18 | Outpatient (CLI) | payer BC, SELFPAY ==
[2020-11-18 14:53] LABS: Amphetamine Urine VISTA NEGATIVE (<1000 ng/mL); Barbiturate Urine VISTA NEGATIVE (< 200 ng/mL); Benzodiazepine Urine VISTA NEGATIVE (< 200 ng/mL); Cocaine Urine VISTA NEGATIVE (< 300 ng/mL); Ecstacy Urine VISTA NEGATIVE (< 500 ng/mL); Methadone Urine VISTA NEGATIVE (< 300 ng/mL); PCP Urine VISTA NEGATIVE (< 25 ng/mL); THC Urine VISTA NEGATIVE (< 50 ng/mL); Vista UDS pH Range 6
[2020-11-21 03:07] LABS: Chlamydia By Nucleic Acid AMP Negative (Negative)
[2020-11-21 09:02] LABS: Gonococcus By Nucleic Acid AMP Negative (Negative)
== END | disposition home or self-care (01) ==
PROVIDERS: PCP Family Medicine; Visit Provider Obstetrics & Gynecology
DX: O09.90 Supervision of high risk pregnancy, unspecified, unspecified trimester (principal); Z3A.00 Weeks of gestation of pregnancy not specified
CPT/HCPCS: 80307; 87086; 87088; 87491; 87591

== ENCOUNTER → 2020-11-21 12:38 | Outpatient (CLI) | payer BC, SELFPAY ==
[2020-11-21 13:36] LABS: Absolute Lymphocyte Count 1.77 X10^3/uL (0.83-4.51); Absolute Neutrophil Count 6.7 X10^3/uL (2.0-7.7); Basophil# 0.02 X10^3/uL; Basophil% 0.2 % (0-1); Eosinophil# 0.08 X10^3/uL; Eosinophils% 0.9 % (0-5); Hematocrit 35.5 % (37-47); Hemoglobin 12.6 g/dL (12.0-15.0); Lymphocyte # 1.77 X10^3/ul (0.83-4.51); Lymphocyte % 19.6 % (19-41); Mean Corp Hgb Conc 35.5 g/dL (32-36); Mean Corpuscular Hgb 29.4 pg (27.0-32.0); Mean Corpuscular Volume 82.9 fL (81-99); Mean Platelet Vol. 10.2 fl (6.2-12.0); Monocyte# 0.46 X10^3/uL; Monocyte% 5.1 % (0-10); NRBC Flagged by Analyzer 0 % (0-5); Neutrophil # 6.65 X10^3/uL (2.7-7.7); Neutrophil % 73.8 % (47-70); Platelet Count 274 K/mm3 (150-450); RBC Distribution Width CV 12.3 % (11.6-14.6); RBC Distribution Width SD 37.2 fl (35.1-43.9); Red Blood Count 4.28 M/mm3 (4.2-5.4)
[2020-11-21 13:51] LABS: NATERA MAILED SPECIMEN
[2020-11-21 13:56] LABS: Glucose Challenge Gest 1H 50g 92 mg/dL (70-140)
[2020-11-21 14:40] LABS: HIV - WCH Non-Reactive (Nonreactive); Hepatitis B Surface Antigen Non-Reactive (Nonreactive); Hepatitis C Antibody Non-Reactive (Nonreactive); Rubella IgG Reactive (Nonreactive); Syphilis Antibodies Non-reactive
[2020-11-25 14:08] LABS: Dilute Prothrombin Time (dPT) 35.6 sec (0.0-55.0); Dilute Russell Viper Venom 43.6 sec (0.0-47.0); PTT-LA 36.8 sec (0.0-51.9); Thrombin Time 15.4 sec (0.0-23.0); dPT Confirm Ratio 1.11 Ratio (0.00-1.40)
[2020-11-25 17:34] LABS: Anti-Cardiolipin Ab, IgA, Qn < 9 APL U/mL (0-11); Anti-Cardiolipin Ab, IgG, Qn < 9 GPL U/mL (0-14); Anti-Cardiolipin Ab, IgM, Qn 10 MPL U/mL (0-12); Beta-2-Glycoprotein I IgA <9 (0-25); Beta-2-Glycoprotein I IgG <9 (0-20); Beta-2-Glycoprotein I IgM <9 (0-32); Interpretation Comment: (.)
== END ==
PROVIDERS: PCP Family Medicine; Referring Provider Obstetrics & Gynecology; Visit Provider Obstetrics & Gynecology
DX: O26.20 Pregnancy care for patient with recurrent pregnancy loss, unspecified trimester (principal); O09.90 Supervision of high risk pregnancy, unspecified, unspecified trimester; O36.0190 Maternal care for anti-D [Rh] antibodies, unspecified trimester, not applicable or unspecified; Z3A.00 Weeks of gestation of pregnancy not specified; Z13.1 Encounter for screening for diabetes mellitus
CPT/HCPCS: 36415; 82950; 85025; 86146; 86147; 86703; 86762; 86780; 86803; 86850; 86900; 86901; 87340

== ENCOUNTER → 2020-12-16 | Outpatient (CLI) | payer BC, SELFPAY ==
[2020-12-16 14:43] LABS: Amphetamine Urine VISTA NEGATIVE (<1000 ng/mL); Barbiturate Urine VISTA NEGATIVE (< 200 ng/mL); Benzodiazepine Urine VISTA NEGATIVE (< 200 ng/mL); Cocaine Urine VISTA NEGATIVE (< 300 ng/mL); Ecstacy Urine VISTA NEGATIVE (< 500 ng/mL); Methadone Urine VISTA NEGATIVE (< 300 ng/mL); PCP Urine VISTA NEGATIVE (< 25 ng/mL); THC Urine VISTA NEGATIVE (< 50 ng/mL); Vista UDS pH Range 5
== END | disposition home or self-care (01) ==
LOC: LABSPEC 15:29
PROVIDERS: PCP Family Medicine; Referring Provider Nurse Practitioner Women's Health; Visit Provider Nurse Practitioner Women's Health
DX: O09.90 Supervision of high risk pregnancy, unspecified, unspecified trimester (principal); Z3A.00 Weeks of gestation of pregnancy not specified
CPT/HCPCS: 80307

== ENCOUNTER → 2021-03-12 10:09 | Outpatient (CLI) | payer BC, SELFPAY ==
[2021-03-12 10:41] LABS: Absolute Lymphocyte Count 1.69 X10^3/uL (0.83-4.51); Basophil# 0.03 X10^3/uL; Basophil% 0.3 % (0-1); Eosinophils% 0.9 % (0-5); Hemoglobin 12.3 g/dL (12.0-15.0); Lymphocyte # 1.69 X10^3/ul (0.83-4.51); Mean Corp Hgb Conc 35.1 g/dL (32-36); Mean Corpuscular Volume 85.4 fL (81-99); Mean Platelet Vol. 9.5 fl (6.2-12.0); Monocyte# 0.46 X10^3/uL; Monocyte% 4.1 % (0-10); NRBC Flagged by Analyzer 0 % (0-5); Neutrophil # 8.95 X10^3/uL (2.7-7.7); Neutrophil % 79.1 % (47-70); Platelet Count 234 K/mm3 (150-450); RBC Distribution Width CV 12.9 % (11.6-14.6); RBC Distribution Width SD 39.5 fl (35.1-43.9); White Blood Count 11.3 K/mm3 (4.4-11.0)
[2021-03-12 11:06] LABS: Glucose Challenge Gest 1H 50g 119 mg/dL (70-140)
== END ==
PROVIDERS: PCP Family Medicine; Referring Provider Obstetrics & Gynecology; Visit Provider Obstetrics & Gynecology
DX: O09.92 Supervision of high risk pregnancy, unspecified, second trimester (principal); O26.892 Other specified pregnancy related conditions, second trimester; Z67.91 Unspecified blood type, Rh negative; Z3A.00 Weeks of gestation of pregnancy not specified
CPT/HCPCS: 36415; 82950; 85025; 86850; 86900; 86901

== ENCOUNTER 2021-04-10 12:20 | Outpatient (CLI) | payer BC, SELFPAY ==
--- NOTE | 2021-04-10 12:24 | US_ITS ---
STUDY: SECOND AND THIRD TRIMESTER OBSTETRICAL ULTRASOUND - LIMITED REASON FOR EXAM: Female, 35 years old growth LMP: 08/29/2020. PRIOR ULTRASOUND: None. TECHNIQUE: Transabdominal TECHNICAL QUALITY: Adequate. FINDINGS: There is a single intrauterine fetus. The fetus is in an transverse lie with the head on the maternal left side. There is demonstrated cardiac activity with a heart rate of 127 bpm. There is a normal amniotic fluid volume. The largest amniotic fluid pocket measures 8.5 cm. The amniotic fluid index (KRISTI) is 22.9 cm. The placenta is anterior in location and is not low lying. There are Grade 1 placental changes. The cervix measures 5.4 cm in length. BIOMETRY: BPD: 8.4 cm: 33 weeks, 6 days HC: 31.3 cm: 35 weeks, 0 days AC: 30.4 cm: 34 weeks, 2 days FL: 6.2 cm: 32 weeks, 2 days Age by LMP: 32 weeks, 0 days. IRINA by LMP: 06/05/2021. age by prior US: 31 weeks, 0 days. IRINA by prior US: 06/12/2021. age by current US: 33 weeks, 4 days. IRINA by current US: 05/25/2021. Estimated weight: 2281 grams, +/- 342 grams, 90 percentile. US/OB Limited With Biometrics IMPRESSION: Single live intrauterine gestation with a mean gestational age of 31 weeks. The measurements obtained today fall within normal limits. Electronically Signed: Rodger Davis MD at 14:40 EST , Service support ,
== END 2021-04-10 23:59 | disposition short-term general hospital (02) ==
LOC: OPUS 12:21
PROVIDERS: PCP Family Medicine; Referring Provider Obstetrics & Gynecology; Visit Provider Obstetrics & Gynecology
DX: O26.849 Uterine size-date discrepancy, unspecified trimester (principal); Z3A.00 Weeks of gestation of pregnancy not specified
CPT/HCPCS: 76816

== ENCOUNTER 2021-05-08 11:53 | Outpatient (CLI) | payer BC, SELFPAY ==
--- NOTE | 2021-05-08 11:56 | US_ITS ---
STUDY: SECOND AND THIRD TRIMESTER OBSTETRICAL ULTRASOUND - LIMITED REASON FOR EXAM: Female, 35 years old . growth. LMP: 08/29/2020. PRIOR ULTRASOUND: Comparison is made with prior study dated 04/10/2021. TECHNIQUE: Transabdominal TECHNICAL QUALITY: Adequate. FINDINGS: There is a single intrauterine fetus. The fetus is in a cephalic presentation. There is demonstrated cardiac activity with a heart rate of 148 bpm. There is a normal amniotic fluid volume. The largest amniotic fluid pocket measures 7 cm. The amniotic fluid index (KRISTI) is 19.3 cm. The placenta is anterior in location and is not low lying. There are Grade 1 placental changes. The cervix was unable to be measured due to the head positioning. BIOMETRY: BPD: 9.4 cm: 38 weeks, 2 days HC: 34 cm: 39 weeks, 0 days AC: 34.3 cm: 38 weeks, 1 days FL: 7.1 cm: 36 weeks, 3 days Age by LMP: 36 weeks, 0 days. IRINA by LMP: 06/05/2021. age by prior US: 37 weeks, 4 days. IRINA by prior US: 05/25/2021. age by current US: 37 weeks, 6 days. IRINA by current US: 05/23/2021. Estimated weight: 3347 grams, +/- 502 grams, 92 percentile. US/OB Limited With Biometrics IMPRESSION: Single live intrauterine gestation with a mean gestational age of 37 weeks and 4 days. The measurements obtained today fall within the normal expected range. Electronically Signed: Rodger Davis MD at 18:37 EST ,
== END 2021-05-08 23:59 | disposition home or self-care (01) ==
PROVIDERS: PCP Family Medicine; Referring Provider Obstetrics & Gynecology; Visit Provider Obstetrics & Gynecology
DX: O09.93 Supervision of high risk pregnancy, unspecified, third trimester (principal); O99.213 Obesity complicating pregnancy, third trimester; E66.9 Obesity, unspecified; Z3A.37 37 weeks gestation of pregnancy
CPT/HCPCS: 76816; 87077; 87081; 87186

== ENCOUNTER 2021-06-09 03:20 | Inpatient (IN) | payer BC, SELFPAY ==
[2021-06-09] VITALS (29 sets, daily range): BP systolic 113–159; BP diastolic 58–101; PULSE 69–151; RESP 16; TEMP 36.3–37.1; O2SAT 96–100; BMI 40.1
[2021-06-09] MEDS: Lactated Ringers 500 ML 999 ML IV (03:30)
[2021-06-09 03:47] LABS: Absolute Lymphocyte Count 1.57 X10^3/uL (0.83-4.51); Absolute Neutrophil Count 8.6 X10^3/uL (2.0-7.7); Basophil# 0.03 X10^3/uL; Basophil% 0.3 % (0-1); Eosinophil# 0.05 X10^3/uL; Eosinophils% 0.5 % (0-5); Hematocrit 38.3 % (37-47); Hemoglobin 13.9 g/dL (12.0-15.0); Lymphocyte # 1.57 X10^3/ul (0.83-4.51); Lymphocyte % 14.4 % (19-41); Mean Corp Hgb Conc 36.3 g/dL (32-36); Mean Corpuscular Hgb 29.5 pg (27.0-32.0); Mean Corpuscular Volume 81.3 fL (81-99); Mean Platelet Vol. 10.3 fl (6.2-12.0); Monocyte# 0.58 X10^3/uL; Monocyte% 5.3 % (0-10); NRBC Flagged by Analyzer 0 % (0-5); Neutrophil # 8.62 X10^3/uL (2.7-7.7); Platelet Count 242 K/mm3 (150-450); RBC Distribution Width CV 13.4 % (11.6-14.6); RBC Distribution Width SD 39.3 fl (35.1-43.9); Red Blood Count 4.71 M/mm3 (4.2-5.4); White Blood Count 10.9 K/mm3 (4.4-11.0)
[2021-06-09] MEDS: Ondansetron 4 MG/2 ML Vial IV ×2 (04:00→09:22)
[2021-06-09] MEDS: Lactated Ringers 1,000 ML 200 ML IV (04:16)
[2021-06-09] MEDS: fentaNYL-bupivacaine (epidural) 100 ML BAG EPIDURAL (04:31)
--- NOTE | 2021-06-09 07:41 | HP.PCM.OB_ITS ---
HPI - General General Date of Admission: 06/09/21 HPI Narrative ADRIAN VIRGEN, is a 35 F who presents IAL 8 cm no lof good fm with regular ctx Maternal Data Information IRINA Calculator Estimated Delivery Date Method Current WG Current Estimate 06/05/21 Ultrasound #2 40w 4d Other Estimates 06/04/21 LMP (Certain) 40w 5d 06/13/21 Ultrasound #1 39w 3d PFSH PFSH Medical History Depression Depression with anxiety Lupus anticoagulant positive Positive GBS test Home Medications multivitamin no.47-iron fum 27 mg-folate no.1 1 mg-dha 300 mg capsule 1 cap PO DAILY 11/04/20 [History Last Taken Unknown] sertraline 50 mg tablet 50 mg PO QDAY #90 tab 11/04/20 [Rx Last Taken 06/08/21] Allergy/AdvReac Type Severity Reaction Status Date / Time No Known Allergies Allergy Verified 06/05/21 13:05 Family History Mother Diabetes Father Heart disease Hypertension Thyroid cancer Sister Diabetes Grandmother Breast cancer Surgical History H/O hemorrhoidectomy history of cyst removal on right middle digit History of dilation and curettage History of tonsillectomy and adenoidectomy History of wisdom tooth extraction, class II edentulism Social History Smoking Status: Never smoker second hand exposure: No alcohol intake: never substance use type: does not use caffeine: No what type of physical activity do you participate in: walking frequency: 3-4 times per week seatbelt use: always do you feel safe at home: Yes additional social history: Spouse- [facility]- RN History 4 Elective abortions Hx Para 1 Spontaneous abortions 2 Hx # Term Pregnancies Ectopic pregnancies Hx # Pregnancies Multiple births # of living children 1 Past Pregnancies Del. Date Name GA/Weeks Outcome Route Bth Weight Gen Labor Lgth Anes th esia Del Locatn Provider FOB 08/22/18 Armando 39 live - full term 5.15 Female 3 hrs epid ural [facility] Delivery Date: 08/22/18 No complications Yeimi Kelly Visit Details Expected Delivery Route/Plan Labor Preferences- CB/BF classes: [] labor support person: [] labor intervention preferences: [] pain management options preferred: [] cut cord/dad catch: [] : [] PP control planned: [] discussed possible routes of delivery and associated risks: [] special requests: [] Plans Covid status: vaccinated Flu vaccine: given Tdap vaccine: 03/12/2021 Rhogam: 03/12/2021 LARC form signed: [] movement and labor precautions reviewed. Problem list reviewed and updated with the most current plan of care details and appropriate orders placed. Relevant counseling for the gestational age provided. Continue routine care and follow up unless otherwise noted in visit not es/problem list details OB Flowsheet Initial Weight: 240 lb Date -?-?-?-?-?-?-?-?-?-?-?-?- EGA Weight BP Urine Prot -?-?-?-?-?-?-?-?-?-?-?-?- Glucose FHR FuHt Pres Dilation -?-?-?-?-?-?-?-?-?-?-?-?- Effaced St Visit Note 11/18/20 -?-?-?-?-?-?-?-?-?-?-?-?- 11w 4d 240 lb (+0 oz) 122/78 -?-?-?-?-?--?-?-?-?-?-?-?- 170 -?-?-?-?-?-?-?-?-?-?-?-?- SM- CRL cons wit h LMP not 1st US, CRL 4.4cm yanna lkeep IRINA 06/04/21 12/16/20 -?-?-?-?-?-?-?-?-?-?-?-?- 15w 4d 242 lb 4 oz (+2 lb 4 oz) 126/84 Negative -?-?-?-?-?-?-?-?-?-?-?-?- Negative 166 -?-?-?-?-?-?-?-?-?-?-?-?- MH-NO VB, LOF. F eels well now. MFM anatomy US ordered. 01/13/21 -?-?-?-?-?-?-?-?-?-?-?-?- 19w 4d 244 lb 4 oz (+4 lb 4 oz) 128/86 Negative -?-?-?-?-?-?-?-?-?-?-?-?- Negative 148 -?-?-?-?-?-?-?-?-?-?-?-?- MH-No VB, LOF. F eeling movement. Anatomy US 01/1602/13/21 -?-?-?-?-?-?-?-?-?-?-?-?- 24w 0d 248 lb (+8 lb) 120/78 Negative -?-?-?-?-?-?-?-?-?-?-?-?- Negative 130 28 -?-?-?-?-?-?-?-?-?-?-?-?- JV- no lof ,vagi nal bleeding, or cramping. Has some low back pain. 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. 03/12/21 -?-?-?-?-?-?-?-?-?-?-?-?- 27w 6d 249 lb (+9 lb) 128/70 -?-?-?-?-?-?-?-?-?-?-?-?- 135 29 -?-?-?-?-?-?-?-?-?-?-?-?- JV- no lof, vagi nal bleeding, or de fm. rhogam today, tdap today 03/24/21 -?-?-?-?-?-?-?-?-?-?-?-?- 29w 4d 253 lb (+13 lb) 128/72 Negative -?-?-?-?-?-?-?-?-?-?-?-?- Negative 130 160 32 -?-?-?-?-?-?-?-?-?-?-?-?- SM- no vb lof go od fm no reuglar ctx 04/10/21 -?-?-?-?-?-?-?-?-?-?-?-?- 32w 0d 251 lb 8 oz (+11 lb 8 oz) 136/84 -?-?-?-?-?-?-?-?-?-?-?-?- 147 35 -?-?-?-?-?-?-?-?-?-?-?-?- JV- no lof, vagi nal bleeding, or dec fm. 04/24/21 -?-?-?-?-?-?-?-?-?-?-?-?- 34w 0d 253 lb (+13 lb) 130/80 Negative -?-?-?-?-?-?-?-?-?-?-?-?- Negative 130 37 -?-?-?-?-?-?-?-?-?-?-?-?- SM- no vb lof go od fm no regular ctx SM- no vb lof good fm no reg ular ctx repeat growth scan, 90 percentile 05/08/21 -?-?-?-?-?-?-?-?-?-?-?-?- 36w 0d 253 lb 6 oz (+13 lb 6 oz) 114/80 Negative -?-?-?-?-?-?-?-?-?-?-?-?- Negative 145 38 -?-?-?-?-?-?-?-?-?-?-?-?- JV- ultrasound r anjelica with patient. EFW currently is 7 lbs 6 oz. plan to rpt growth at 39 weeks if still . 05/15/21 -?-?-?-?-?-?-?-?-?-?-?-?- 37w 0d 256 lb (+16 lb) 130/82 Negative -?-?-?-?-?-?-?-?-?-?-?-?- Negative 153 38 Cephalic 1 -?-?-?-?-?-?-?-?-?-?-?-?- 50 -3 JV-pt got covid booster Wednesday. no side effects GBS pos discussed . 05/22/21 -?-?-?-?-?-?-?-?-?-?-?-?- 38w 0d 257 lb (+17 lb) 119/78 Negative -?-?-?-?-?-?-?-?-?-?-?-?- Negative 145 40 Cephalic 1 -?-?-?-?-?-?-?-?-?-?-?-?- SM- no vb lof go od fm no regular ctx 05/29/21 -?-?-?-?-?-?-?-?-?-?-?-?- 39w 0d 258 lb 2 oz (+18 lb 2 oz) 122/88 Negative -?-?-?-?-?-?-?-?-?-?-?-?- Negative 140 40 Cephalic 1 -?-?-?-?-?-?-?-?-?-?-?-?- 50 -3 JV- no lof , vaginal bleeding ,or dec fm. pt wants to be induced at 40 weeks. suspect LGA. if no labor by next week will set up induction. 06/05/21 -?-?-?-?-?-?-?-?-?-?-?-?- 40w 0d 257 lb 8 oz (+17 lb 8 oz) 128/82 Negative -?-?-?-?-?-?-?-?-?-?-?-?- Negative 140 41 Cephalic 2 -?-?-?-?-?-?-?-?-?-?-?-?- 70 -2 Sm- no vb lof good fm no reuglar ctx discussed IOL Wednesday06/09/21 -?-?-?-?-?-?-?-?-?-?-?-?- 40w 4d 256 lb 6.362 oz (+16 lb 6.362 oz) 130/82 146/101 155/91 119/75 115/72 130/75 131/80 132/88 -?-?-?-?-?-?-?-?-?-?-?-?- -?-?-?-?-?-?-?-?-?-?-?-?- NST FHR Rate Baby A Baseline: 140 Variability:: Moderate Accelerations:: 15 x 15 Decelerations:: None NST Reactive:: Yes FHR Category:: Category I Uterine Activity:: q2 ROS Constitutional Constitutional: Reports systems reviewed and no addt'l complaints, except as documented ENT HEENT: Reports systems reviewed and no addt'l complaints, except as documented Cardiovascular Cardiovascular: Reports systems reviewed and no addt'l complaints, except as documented Respiratory/Chest Respiratory/Chest: Reports systems reviewed and no addt'l complaints, except as documented Gastrointestinal Gastrointestinal: Reports systems reviewed and no addt'l complaints, except as documented and nausea; Denies abdominal pain Genitourinary Genitourinary: Reports systems reviewed and no addt'l complaints, except as documented, contractions Details: present and frequency (regular ) and movement Details: present Musculoskeletal Musculoskeletal: Reports systems reviewed and no addt'l complaints, except as documented Integumentary Integumentary: Reports as per HPI Neurologic Neurologic: Reports systems reviewed and no addt'l complaints, except as documented Endocrine Endocrinology: Reports systems reviewed and no addt'l complaints, except as documented Vital Signs Vital Signs Vital Signs: 06/09/21 04:18 06/09/21 04:21 06/09/21 04:23 Temperature Temperature Source Pulse Rate 84 85 87 Blood Pressure 130/82 H BP Systolic 130 BP Diastolic 82 Pulse Ox 99 100 06/09/21 04:26 06/09/21 04:30 06/09/21 04:32 Temperature 97.9 F Temperature Source Pulse Rate 88 89 Blood Pressure 146/101 H BP Systolic 146 BP Diastolic 101 Pulse Ox 97 06/09/21 04:35 06/09/21 04:40 06/09/21 04:45 Temperature 98.0 F Temperature Source Temporal Pulse Rate 93 84 87 Blood Pressure 155/91 H BP Systolic 155 BP Diastolic 91 Pulse Ox 97 97 98 06/09/21 04:50 06/09/21 04:53 06/09/21 04:55 Temperature Temperature Source Pulse Rate 75 81 77 Blood Pressure 119/75 115/72 BP Systolic 119 115 BP Diastolic 75 72 Pulse Ox 98 97 06/09/21 05:00 06/09/21 06:18 06/09/21 07:29 Temperature 97.6 F L Temperature Source Temporal Pulse Rate 69 75 75 Blood Pressure 130/75 H 131/80 H 132/88 H BP Systolic 130 131 132 BP Diastolic 75 80 88 Pulse Ox 98 96 Weight Weight: 256 lb 6.362 oz Body Mass Index (BMI) 40.1 Physical Exam Const alert, oriented x3 and healthy appearing Constitutional Narrative: uncomfortable with contractions HEENT normocephalic and moist oral mucous membranes Head and Scalp: atraumatic Neck full ROM, no lymphadenopathy, supple and thyroid normal General: trachea midline Thyroid: thyroid normal Lymph Lymphatic: no lymphadenopathy noted Chest inspection of chest normal Resp normal respiratory effort Cardio regular rate GI normal to inspection, nondistended, normoactive bowel sounds, soft to palpation and non-tender Inspection: gravid external exam normal Bimanual Exam - Vag & Uterus: uterus non-tender Manual OB Exam: estimated gestational size appropriate, presentation cep halic, dilated, effaced and station Extremity normal to inspection General Extremity: Negative for edema Skin no rashes or lesions noted Neuro deep tendon reflexes 2+ bilaterally Motor Exam: strength 5/5 throughout and clonus absent Psych mental status grossly normal Labs Labs Labs: Blood Type O NEGATIVE Antibody Screen NEGATIVE Hct 38.3 % (37-47) Hgb 13.9 g/dL (12.0-15.0) Obstetrics US Syphilis Total Ab Non-reactive VZV IgG Antibody > 4000 index (Immune >165) Rubella IgG Antibody Reactive (Nonreactive) Hep Bs Antigen Non-Reactive (Nonreactive) Neisseria gonorrhoeae DNA (AHMET) Negative (Negative) HIV 1&2 Antibody Non-Reactive (Nonreactive) C.trachomatis DNA (PCR) Negative (Negative) Glucose 1 Hr 50 gm 119 mg/dL (70-140) Rhogam given: Yes Miscellaneous Test Assessment & Plan (1) Depression with anxiety: COMMENT: recommend counseling, ordered zoloft (2) : QUALIFIERS: Weeks of gestation: 40 weeks Qualified Code(s): Z3A.40 - 40 weeks gestation of COMMENT: 04/10 growth US nl. genetic- low risk male. carrier and ntd screening declined. Anatomy US normal growth US nl (3) Supervision of high risk , antepartum: COMMENT: PRR IRINA: 06/04/21 boy PC: Armando Spouse: Vic (4) Obesity affecting : QUALIFIERS: Trimester: second trimester Qualified Code(s): O99.212 - Obesity complicating , second trimester COMMENT: Normal 1 GCT at [facility] (5) Rh negative status during : QUALIFIERS: Trimester: second trimester Qualified Code(s): O26.892 - Other specified related conditions, second trimester; Z67.91 - Unspecified blood type, Rh negative COMMENT: O neg- needs Rhogam at 28 weeks and PRN (6) Family history of other congenital malformations, deformations and chromosomal abnormalities: COMMENT: Nephew with congenital heart defects (7) History of recurrent miscarriages: COMMENT: x2 apl panel- NEG APL panel 11/21/20. still takes baby asa (8) Positive GBS test: COMMENT: treatment in labor (9) Active labor at term: COMMENT: epidural arom clear fluid
[2021-06-09] MEDS: Penicillin G 3,000,000 Units 50 ML 100 UNITS IV (07:48)
--- NOTE | 2021-06-09 08:25 | EX.PCM.OBRPT ---
Assessment & Plan (1) Active labor at term: COMMENT: epidural arom clear fluid (2) Positive GBS test: COMMENT: treatment in labor (3) History of recurrent miscarriages: COMMENT: x2 apl panel- NEG APL panel 11/21/20. still takes baby asa (4) Family history of other congenital malformations, deformations and chromosomal abnormalities: COMMENT: Nephew with congenital heart defects (5) Rh negative status during : QUALIFIERS: Trimester: second trimester Qualified Code(s): O26.892 - Other specified related conditions, second trimester; Z67.91 - Unspecified blood type, Rh negative COMMENT: O neg- needs Rhogam at 28 weeks and PRN (6) Obesity affecting : QUALIFIERS: Trimester: second trimester Qualified Code(s): O99.212 - Obesity complicating , second trimester COMMENT: Normal 1 GCT at [facility] (7) Supervision of high risk , antepartum: COMMENT: PRR IRINA: 06/04/21 boy PC: Armando Spouse: Vic (8) : QUALIFIERS: Weeks of gestation: 40 weeks Qualified Code(s): Z3A.40 - 40 weeks gestation of COMMENT: 04/10 growth US nl. genetic- low risk male. carrier and ntd screening declined. Anatomy US normal growth US nl (9) Depression with anxiety: COMMENT: recommend counseling, ordered zoloft (10) Vaginal delivery: COMMENT: SM IAL 40 boy Maternal Data Information IRINA Calculator Estimated Delivery Date Method Current WG Current Estimate 06/05/21 Ultrasound #2 40w 5d Other Estimates 06/04/21 LMP (Certain) 40w 6d 06/13/21 Ultrasound #1 39w 4d Vaginal Delivery Operative Information Date of Procedure: 06/09/21 Pre-Operative Diagnosis: IAL Post-Operative Diagnosis: same Surgery / Procedure Performed: Spontaneous Vaginal Delivery Type of Anesthesia: Epidural Special Medications: none Estimated Blood Loss: 100 Fluids Replaced: crystalloid Findings Description of Procedure: Patient began pushing and delivered the head in the PAT presentation. The head was delivered atraumatically and a loose nuchal cord ?1 was identified and the infant delivered through without complication. The anterior and posterior shoulders delivered without complication followed by the rest of the and the infant was placed on the maternal abdomen. Delayed cord clamping was employed for approximately 60 seconds. Cord was clamped and cut and gentle traction was applied to the cord and the placenta delivered spontaneously immediately following it was noted to be intact with three-vessel cord. The perineum and vagina were inspected and noted to have a first degree laceration repaired in the usual fashion with 3-0 vicryl rapide. EBL was 400. Patient and tolerated delivery well. Presentation: PAT Amniotic Membrane Rupture Type: Artificial Amniotic Fluid Description: Clear Placental Delivery Description: Spontaneous Placenta Disposition: [facility] Cord Vessel Description: 3 Vessels Cord Entanglement: None Delayed Cord Clamping: Yes Post Vaginal Delivery Medications Given After Delivery: IV Pitocin Episiotomy Description: None Laceration: Perineal Extension/lac and 1st degree Complication Complications: None Procedures Urinary/Genital [id number]: [id number] Vaginal Delivery [facility]
[2021-06-09] MEDS: Methylergonovine 0.2 MG/ML Ampul IM (08:35)
[2021-06-09] MEDS: Oxytocin 30 units/NS 500 ml 30 UNITS/500 ML IV.SOLN 334 UNITS IV (08:35)
[2021-06-09] MEDS: Acetaminophen 500 MG Tablet 1000 MG PO ×2 (09:51→20:07)
[2021-06-09] MEDS: 0.9% Saline Lock 10 ML Syringe IV (11:14)
[2021-06-09] MEDS: Sertraline 50 MG Tablet PO (20:11)
[2021-06-10] VITALS (7 sets, daily range): BP systolic 110–130; BP diastolic 67–82; PULSE 74–82; RESP 18–20; TEMP 36.3–37.2; O2SAT 99
[2021-06-10] MEDS: Acetaminophen 500 MG Tablet 1000 MG PO (03:45)
--- NOTE | 2021-06-10 08:03 | PCM.PN.OB ---
Subjective Subjective Patient doing well without complaints. Tolerating PO. Ambulating and voiding without difficulty. Feeding well. Denies chest pain, shortness of breath, calf pain/swelling, fevers, chills, lightheadedness. Objective Data Objective Data Vital Signs: Vital Signs Temp Pulse Resp BP Pulse Ox 98.3 F 80 18 110/67 99 06/10/21 03:45 06/10/21 03:49 06/10/21 03:45 06/10/21 03:49 06/10/21 03:45 Oxygen Delivery Method Room Air Weight: 256 lb 6.362 oz Body Mass Index (BMI) 40.1 Intake & Output: Intake and Output for Last 24 Hours 06/08/21 06/09/21 06/10/21 23:59 23:59 23:59 Intake Total / Output Total 750 / 750 Balance 1268.33 / 1268.33 Lab / Micro Data Result Diagrams: 06/09/21 03:30 Micro: Microbiology 06/09/21 03:30 Nasal Secretion SARS-CoV-2 Antigen (Rapid) - Final Physical Exam Const alert and oriented x3 HEENT normocephalic Eyes PERRL Neck full ROM Resp normal respiratory effort GI soft to palpation GI Narrative: FF below U Assessment & Plan (1) Vaginal delivery: COMMENT: SM IAL 40 boy (2) Rh negative status during : QUALIFIERS: Trimester: second trimester Qualified Code(s): O26.892 - Other specified related conditions, second trimester; Z67.91 - Unspecified blood type, Rh negative COMMENT: O neg- needs Rhogam at 28 weeks and PRN (3) Depression with anxiety: COMMENT: recommend counseling, ordered zoloft PLAN: s/p PPD # 1 1. routine post delivery care 2. breast feeding- support given 3. rh negative 4. rubella immune 5. mood stable 6. home today
--- NOTE | 2021-06-10 11:58 | CASEMGMT ---
Social Work Assessment Labor and Delivery Unit Date of Referral: 06/09/2021 Time of Referral: 23:10 Referred By: Dr. Regi Quevedo Date of Intervention: 06/10/2021 Time of Intervention: 11:58 Reason for Referral: Mother of baby (MOB) with history of anxiety and depression. History obtained from: MOB, Father of baby (FOB), chart, and nursing staff. Household composition: MOB, FOB (Vic Leary), Armando Leary (: 08/22/2018), and now this , Puma Leary Patient's parent/guardian status: MOB and FOB have been since ?2014.? MOB denies abuse from FOB, per chart review. MOB reports that was planned. Medical History: MOB with history prior to having this infant. MOB with two spontaneous abortions. MOB with vaginal delivery at 40 weeks. Infant born on 06/09/2020 with apgars of 8 and 9 at 1min and 5min. Infant to follow with Dr. Mcnulty in the community. MOB plans to breastfeed this infant. MOB with appropriate care visits. Educational Status: MOB denies issues with comprehension or understanding. 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 Financial Status: MOB denies financial concerns. MOB to have 12 weeks off work. NGOC works full-time for [employer] and will have 2 weeks off work. Infant Supplies: MOB reports to have needed supplies in the home including car seat and crib. Childcare/Caregiver(s): MOB plans to be primary caregiver for and other child until returning to work. MOB plans for family to care for children when MOB returns to work. Family is currently caring for Armando while MOB, FOB and now this infant are in the hospital. Transportation: Denies issues. Programs/Agencies Involved: No active community programs. Children Services/Legal Issues: Denies legal issues or history of children services in the community. Mental Health History: MOB reports history of Depression and Anxiety. MOB currently prescribed Zoloft and reports to have been taking Zoloft throughout and prior to . MOB denies history of depression but that ?things were rough? during first . MOB reports to have had multiple stressors during first that have not been resolved and this went well. MOB denies history of suicidal thoughts, plans, intents, or current thoughts. This social and political studies professor able to facilitate conversation with MOB about depression and anxiety signs and symptoms. MOB reports history of counseling but not active counseling services. MOB reports to feel comfortable reaching out to family and outside support such as medical record coder if MOB is having difficulty managing mental health. This social and political studies professor encouraged MOB to reach out to counseling as a community support to help manage mental health or to be proactive, MOB voiced understanding to this and agreeable to this social and political studies professor providing patient with list of counseling agencies. Substance Use History: MOB and FOB deny. MOB with negative tox screen on 12/16/20. PHQ9: Did not trigger. Family/Social Stressors: MOB denies current family stressors/concerns outside of adjusting to life with two children. Support Systems: MOB and FOB report to have positive supports from both MOB and FOB?s families. Depression and Anxiety/Shaken Baby/Safe Sleeping: This social and political studies professor provided MOB with depression and anxiety signs and symptoms handout, shaken baby info, Safe sleeping info, list of counseling agencies and [facility] resources. ASSESSMENT: This social and political studies professor met with MOB, FOB, and in room. Introduced self and social and political studies professor role. MOB agreeable to speaking with this social and political studies professor and provided verbal permission for this social and political studies professor to speak openly with FOB present. MOB infant upon this social and political studies professor entering the room. MOB with no concerns on returning to the community. MOB and FOB report to feel a connection to infant. MOB and FOB both report plan to have no more children ?this is it for us.? MOB with positive and engaged affect. MOB gazing often towards and appropriate with care of . Active support and listening provided. PLAN: to discharge to home with family. No other services requested or indicated. Gissel ROYAL, CHLOE
== END 2021-06-10 13:00 | disposition home or self-care (01) | DRG 807 ==
PROVIDERS: Admitting Provider Obstetrics & Gynecology; PCP Family Medicine; Visit Provider Obstetrics & Gynecology
DX: O69.81X0 Labor and delivery complicated by cord around neck, without compression, not applicable or unspecified (principal); Z37.0 Single live birth; O26.23 Pregnancy care for patient with recurrent pregnancy loss, third trimester; F32.A Depression, unspecified; F41.9 Anxiety disorder, unspecified; O99.344 Other mental disorders complicating childbirth; O70.0 First degree perineal laceration during delivery; O99.824 Streptococcus B carrier state complicating childbirth; O99.214 Obesity complicating childbirth; O26.893 Other specified pregnancy related conditions, third trimester; Z67.41 Type O blood, Rh negative; Z3A.40 40 weeks gestation of pregnancy; Z82.79 Family history of other congenital malformations, deformations and chromosomal abnormalities
CPT/HCPCS: 59025; 59050; 85025; 86850; 86900; 86901; 87426; 99218; J7120; A4216; G0378; J2405

== ENCOUNTER 2022-03-24 10:23 | Day surgery (SDC) | payer BC, SELFPAY ==
--- NOTE | 2022-03-13 16:38 | PCM.HP.BLA ---
History and Physical Date of Admission: 03/24/22 Intake Vital Signs ? 03/02/2212:59 03/02/2213:01 Height 5 ft 7 in 5 ft 7 in Weight: 240 lb ? BMI 37.5 ? BP 110/82 H ? Intake Visit Reasons:?BS Chief Complaint: pre op Broach Operator Required: No Is patient in pain?: No Allergies No Known Allergies Allergy (Verified 06/11/21 09:49) Medications sertraline 100 mg tablet 100 mg PO QDAY depression #90 tabs 07/22/21 [Rx Confirmed 03/02/22] Is last menstrual period known: No Post menopausal: No Patient : No : No PFSH Medical History? Depression Depression with anxiety Lupus anticoagulant positive Surgical History? H/O hemorrhoidectomy history of cyst removal on right middle digit History of dilation and curettage History of tonsillectomy and adenoidectomy History of wisdom tooth extraction, class II edentulism Family History? Mother DiabetesFather Heart disease Hypertension Thyroid cancerSister DiabetesGrandmother Breast cancer Social History? Smoking Status:? Never smoker second hand exposure:? No alcohol intake:? never substance use type:? does not use caffeine:? No what type of physical activity do you participate in:? walking frequency:? 3-4 times per week seatbelt use:? always do you feel safe at home:? Yes additional social history:? Spouse- [facility]- RN ? HPI BS Details: ADRIAN VIRGEN is a 36 year old who presents for preop visit planning bilateral salpingectomy. she is done . History ? ? ? 4 ? Elective abortions ? ? ? 0 Hx Para ? ? ? 2 ? Spontaneous abortions ? ? ? 2 Hx # Term Pregnancies ? ? ? 0 ? Ectopic pregnancies ? ? ? 0 Hx # Pregnancies ? ? ? 0 ? Multiple births ? ? ? 0 ? # of living children ? ? ? 2 Past Pregnancies Del. Date Name GA/Weeks Outcome Route Bth Weight Gen Labor Lgth Anesthesia Del Locatn Provider FOB 08/22/18 Armando 39 live - full term 5.15 Female 3 hrs epidural [facility] Vic 06/10/21 Puma 40 live - full term ? Male ? ? [facility] ? Delivery Date: 08/22/18? Last Updated by: Yeimi Kelly ? ? ? No complications Delivery Date: 06/10/21? Last Updated by: Enma Castillo ? ? ? IOL ROS Const Constitutional: Denies fatigue, weight gain or weight loss ENT ENT: Reports system reviewed and no additional complaints, except as documented Cardio Card: Denies chest pain Resp Resp: Denies cough or dyspnea GI GI: Reports as per HPI; Denies abdominal pain, constipation, nausea or vomiting : Denies nipple discharge, urinary frequency, urinary incontinence, urinary hesitancy, urinary urgency, vaginal discharge, vaginal dryness, vaginal odor or vaginal pruritus Musc Musc: Denies arthralgias, back pain or muscle weakness Skin Skin/Breast: Denies alopecia, change in hair, dry skin, breast mass, breast pain, breast skin changes or nipple discharge Neuro Neuro: Reports system reviewed and no additional complaints, except as documented Psych Psych: Reports system reviewed and no additional complaints, except as documented Endo Endo: Denies cold intolerance, excessive sweating, heat intolerance or polydipsia John/Lymph Hematologic/Lymphatic: Denies easy bleeding, Denies easy bruising and Denies lymphadenopathy Exam Const General: cooperative, healthy appearing, comfortable, no acute distress and well developed Orientation: alert [facility] Head: normal to inspection and normocephalic Ears: hearing grossly normal bilaterally and external ears normal Nose: external nose normal and nares normal Face and sinus: normal facial exam Neck Neck: normal visual inspection and no lymphadenopathy Thyroid: thyroid normal Chest Chest palpation & inspection: normal inspection of the chest Resp Effort & Inspection: normal respiratory effort Auscultation: clear to auscultation bilaterally Cardio Rate: regular rate Rhythm: regular rhythm Heart Sounds: S1 normal and S2 normal GI Inspection: normal to inspection and non-distended Palpation: soft and no hepatosplenomegaly Musc Other: gross motor intact no deficits, full bilateral strength Skin General: no rashes or lesions noted Neuro General: patient alert, patient awake, moves all extremities and no focal motor deficits Motor: muscle tone normal throughout Extrem General: normal to inspection and no pedal edema Psych Appearance: grossly normal Mental Status: mental status grossly normal Affect: normal affect Speech and Movement: speech and movement normal Coding Level of Care Code No Charge Diagnoses Depression with anxiety? F41.8 Sterilization? Z30.2 Assessment and Plan Assessment and Plan (1) Depression with anxiety: ?Status:?Acute ?Comment: recommend counseling, ordered zoloft (2) Sterilization: ?Status:?Acute ?Comment: lap bs.? vasectomy also. Plan After discussing the patient's diagnosis and treatment plan options, patient wishes to proceed with surgical management.? I have discussed with the patient the risks, benefits, and alternatives of the procedure which include but are not limited to risks of anesthesia, bleeding, infection, possible damage to bowel, bladder, or surrounding vasculature which could lead to additional surgery to evaluate any complications.? Patient agrees to procedure and wishes to proceed.? ACOG/uptodate references given for additional information regarding procedure.? UPDATE- I have seen the patient and performed any clinically relevant updates to the history and physical exam. Regi Quevedo MD
[2022-03-24 10:47] LABS: Internal QC Validated? YES +Cl - CLEAR BKGD; Pregnancy, Urine Negative Negative
[2022-03-24] MEDS: Lactated Ringers 1,000 ML 125 ML IV (10:56)
[2022-03-24 10:58] VITALS: BP 112/75; PULSE 64; RESP 18; TEMP 37; O2SAT 100; BMI 36.5
[2022-03-24 11:02] LABS: Absolute Lymphocyte Count 1.98 X10^3/uL (0.83-4.51); Absolute Neutrophil Count 5.3 X10^3/uL (2.0-7.7); Basophil# 0.03 X10^3/uL; Basophil% 0.4 % (0-1); Eosinophils% 1.3 % (0-5); Hemoglobin 13.9 g/dL (12.0-15.0); Lymphocyte # 1.98 X10^3/ul (0.83-4.51); Lymphocyte % 25.4 % (19-41); Mean Corp Hgb Conc 35.6 g/dL (32-36); Mean Corpuscular Volume 81.4 fL (81-99); Monocyte# 0.37 X10^3/uL; Monocyte% 4.8 % (0-10); NRBC Flagged by Analyzer 0 % (0-5); Neutrophil # 5.28 X10^3/uL (2.7-7.7); Neutrophil % 67.8 % (47-70); Platelet Count 259 K/mm3 (150-450); RBC Distribution Width CV 12.9 % (11.6-14.6); RBC Distribution Width SD 37.7 fl (35.1-43.9); Red Blood Count 4.79 M/mm3 (4.2-5.4); White Blood Count 7.8 K/mm3 (4.4-11.0)
--- NOTE | 2022-03-24 12:00 | FALS_PTH ---
PATIENT: ADRIAN VIRGEN LOC: [facility] U#:[id number] AGE/SX: 36/F ROOM: RE03/24/[address]: Dr. Regi Quevedo MD : 1985 BED: DIS: 03/24/2022 SPEC #: [id number] RECD: 03/24/22 17:03 STATUS: FLORY REMagdalena #: [id number] JAVIER: 03/24/22 12:[address]: Regi Quevedo DEPT: SURGICAL PATHOLOGY RECD BY: Naomi Quispe ENTERED: 03/25/22 08:03 SP TYPE: FALL TUBES OTHR DR: Dr. Eduardo Yeung MD Tissues: Fallopian tube Procedures: Surgery Specimen Level II Surgery Specimen Level IV HEADER OPERATION: Laparoscopic salpingectomy PRE-OP DIAGNOSIS: Sterilization TISSUE SUBMITTED: Bilateral fallopian tubes MICROSCOPIC DIAGNOSIS Right and left fallopian tubes, bilateral salpingectomies: One fallopian tube with benign serous cystadenofibroma of ovarian origin. Complete cross-sections of both fallopian tubes. AM:nicole 03/26/2022 COMMENT Case has been reviewed in consultation with Dr. Restrepo who concurs with the above diagnosis. IDC:MYLES MICROSCOPIC DESCRIPTION Slides are reviewed. GROSS DESCRIPTION Received in fixative is one container labeled with the patient's name and designated bilateral fallopian tubes. The specimen consists of bilateral fallopian tubes. The fallopian tubes are not identified as right or left. One of the fallopian tubes show fimbrial end and measures 4.5 cm in length and 0.7 cm in diameter. The fallopian tube shows a rousseau-white nodule at the surface measuring 0.8 x 0.5 x 0.5 cm. The second fallopian tube measures 4 cm in length and 0.5 cm in diameter. The fimbrial end is not identified in this fallopian tube. Sections reveal unremarkable cut surfaces. Traffic Or System Dispatcher sections are submitted in three cassettes as follows: 1 & 2 - fallopian tube with fimbrial end (cassette 2 contains the entire rousseau-white nodule, entirely submitted) 3 - second fallopian tube. / MYLES:nicole 03/25/2022 TC:5 CPT: 53376, 34908
--- NOTE | 2022-03-24 13:56 | PCM.OPRPT ---
Problems Associated Problem List Diagnoses (1) Sterilization: Report of Operation Date of Procedure: 03/24/22 Pre-Operative Diagnosis: see problem list Post-Operative Diagnosis: same Surgery/Procedure Performed:: laparoscopic bilateral salpingectomy Description of Surgical Findings:: nl uterus tubes ovaries Surgeon: Regi Quevedo Type of Anesthesia: General and Local Specimen's removed: tubes Drains: none Estimated Blood Loss (mL): 50 Fluids Replaced: crystalloid Description of Procedure: Patient was taken in the operating room and was placed under general anesthesia was prepped and draped in normal sterile fashion in the dorsal lithotomy position. Bladder was drained of clear urine and SCDs were on preoperatively. Uterus was sounded and a uterine manipulator was placed after dilating. Attention was then paid to the abdominal portion of the procedure and the umbilicus was elevated with towel clamps and injected with Marcaine and after a 5 mm incision was made and the Veress needle was entered into the abdomen confirmed to be intra-abdominal with a low opening pressure of less than 5 mmHg. Abdomen was insufflated with CO2 gas and a 5 mm optical trocar was placed under direct visualization. A 5 mm port suprapubically was placed under direct visualization. Uterus was well visualized and bilateral fallopian tubes identified and bilateral tubes were elevated and transecting across the mesosalpinx and the attachment to the uterine corpus bilaterally the tubes were removed without complication. Excellent hemostasis was noted. Fallopian tubes were removed through the lower port site without complication. a small nodular area was seen on the left tube and it was sent to pathology. Liver and upper abdomen were visualized notably within normal limits and no other gross abnormalities were seen in the abdomen. All instruments removed from the abdomen after gas was desufflated. Port sites were closed with 3-0 Monocryl Steri's and op sites were applied. All instruments removed from the vagina and patient was awoken and taken recovery in stable condition. Grafts/Implants Used: none Complications none Admit VTE Documentation VTE Present on Admission: No VTE Mechan Device Prophylaxis: SCD's Multi Select Codes Urinary/Genital Urinary/Genital CPT Codes: 88688 Laproscopic BS/O
--- NOTE | 2022-03-24 13:57 | DCINST_ITS ---
Discharge Instructions Diet Discharge Diet: No restrictions Activity Discharge Activity: Return to Normal Activity, May Drive (when pain free) and May Shower May resume sexual activity in: 1 week Weight Bearing Status: Full weight bearing Lifting Restrictions: 30 lbs for 2 weeks Dressing / Incision Call your doctor if your incision/area has: Continuous Slow Oozing, Sudden Increased Bleeding, Increased Pain/ Swelling, Increased Redness and Foul Smelling Discharge Call your doctor if you observe: Fever of 101 or Higher, Using more than 1 pad per hour, Shortness of breath, Chest pain and Uncontrolled pain Suture Line Care: Avoid Pulling/Pushing and Avoid Pinching/Bending Remove Dressing in: 1 week (if present) Cleanse incision/area with: Soap & Water and Keep Dressing Clean & Dry Follow Up Care Please Follow Up With: Regi Quevedo MD When: Call to make an appointment with your doctor for a postop visit in 2 weeks Test Results: Test results from this visit will be discussed in further detail at your follow- up appointment, if applicable. Discharge Plan Admission Attending Provider: Regi Quevedo Primary Care Provider: Eduardo Yeung Discharge Orders/Prescriptions Prescriptions: New oxycodone-acetaminophen [Percocet] 5-325 mg tablet 1 tab PO Q6H PRN (Reason: pain) 7 Days Qty: 20 0RF naproxen [naproxen] 500 mg tablet 500 mg PO BID PRN PRN (Reason: Pain) Qty: 30 1RF Continued sertraline 100 mg tablet 100 mg PO QDAY Qty: 90 3RF Referrals / Follow Up: Eduardo Yeung MD [Primary Care Provider] - Disposition Disposition (needs filled in before D/C Order can be placed): Home, Self Care
[2022-03-24 14:31] VITALS: BP 112/75; BP 123/81; PULSE 80; RESP 18; TEMP 36.8; O2SAT 100
[2022-03-24 14:45] VITALS: BP 111/71; BP 112/75; PULSE 72; RESP 18; O2SAT 99
[2022-03-24 15:00] VITALS: BP 107/68; BP 112/75; PULSE 59; RESP 16; O2SAT 100
[2022-03-24 15:06] VITALS: BP 108/73; BP 112/75; PULSE 57; RESP 18; TEMP 37; O2SAT 98
[2022-03-24 16:11] VITALS: BP 112/75; BP 114/73; PULSE 88; RESP 18; TEMP 36.6; O2SAT 99
== END 2022-03-24 16:45 | disposition home or self-care (01) ==
LOC: SDC 10:23 → AC 10:24
PROVIDERS: Anesthesiology; PCP Family Medicine; Referring Provider Obstetrics & Gynecology; Visit Provider Obstetrics & Gynecology
PROC: (CPT 58661; principal; 2022-03-24 11:45)
DX: Z30.2 Encounter for sterilization (principal); F41.8 Other specified anxiety disorders; D27.9 Benign neoplasm of unspecified ovary
CPT/HCPCS: 58661; 00840; 81025; 85025; 86850; 86900; 86901; 88302; 88305; J7120; J2405

== ENCOUNTER → 2022-07-01 | Outpatient (CLI) | payer BC, SELFPAY ==
--- NOTE | 2022-07-01 09:00 | MRI_ITS ---
STUDY: MRI LEFT REARFOOT WITHOUT CONTRAST REASON FOR EXAM: Female, 36 years old. Left hindfoot pain for several months. TECHNIQUE: Standardized fat and water weighted pulse sequences were obtained in all 3 orthogonal planes. COMPARISON: None. FINDINGS: Normal subcutis adipose space. Normal posterior tibialis tendon. Normal flexor digitorum longus tendon. Normal flexor hallucis longus tendon. Normal peroneus longus and brevis tendons. Normal tibialis anterior tendon. Normal extensor hallucis longus tendon. Normal extensor digitorum longus tendons. Normal Achilles tendon and teno-osseous insertion. Partial tear of the proximal plantar fascia with bone marrow edema at its calcaneal origin compatible with plantar fasciitis (sagittal series 5 images 1117). Normal plantar calcaneal tubercles. Normal intrinsic muscles of the rearfoot. Normal distal tibiofibular syndesmotic ligamentous complex. Normal lateral ligamentous complex. Normal subtalar ligaments and sinus tarsi. Normal deltoid ligamentous complexes. Normal plantar calcaneonavicular (spring) ligament. Normal tibiotalar articulation. Normal talar dome. Small subtalar joint effusion with posterior septated ganglion cyst (sagittal series 5 images 8-15). Normal talonavicular articulation. Normal calcaneocuboid articulation. Normal navicular-cuneiform articulations. MRI/Lower Ext/No Jt/w/o IMPRESSION: Partial tear of the proximal plantar fascia compatible with plantar fasciitis, as described. Small subtalar joint effusion with posterior septated ganglion cyst.. Electronically Signed: Aman Goetz, at 9:32 EDT ,
== END | disposition home or self-care (01) ==
PROVIDERS: PCP Family Medicine; Referring Provider Podiatrist; Visit Provider Podiatrist
DX: M72.2 Plantar fascial fibromatosis (principal); M67.472 Ganglion, left ankle and foot
CPT/HCPCS: 73718

== ENCOUNTER 2023-02-12 05:55 | Day surgery (SDC) | payer BC, SELFPAY ==
[2023-02-08 09:45] LABS: Absolute Lymphocyte Count 2.02 X10^3/uL (0.83-4.51); Absolute Neutrophil Count 5.1 X10^3/uL (2.0-7.7); Basophil# 0.03 X10^3/uL; Basophil% 0.4 % (0-1); Eosinophil# 0.11 X10^3/uL; Eosinophils% 1.4 % (0-5); Hematocrit 40.6 % (37-47); Hemoglobin 13.7 g/dL (12.0-15.0); Lymphocyte # 2.02 X10^3/ul (0.83-4.51); Lymphocyte % 26.1 % (19-41); Mean Corp Hgb Conc 33.7 g/dL (32-36); Mean Corpuscular Hgb 28.4 pg (27.0-32.0); Mean Corpuscular Volume 84.1 fL (81-99); Monocyte# 0.41 X10^3/uL; Monocyte% 5.3 % (0-10); NRBC Flagged by Analyzer 0 % (0-5); Neutrophil # 5.14 X10^3/uL (2.7-7.7); Neutrophil % 66.3 % (47-70); Platelet Count 252 K/mm3 (150-450); RBC Distribution Width CV 12.3 % (11.6-14.6); RBC Distribution Width SD 37.2 fl (35.1-43.9); Red Blood Count 4.83 M/mm3 (4.2-5.4); White Blood Count 7.8 K/mm3 (4.4-11.0)
[2023-02-08 10:10] LABS: ALB/GLOB Ratio 0.9 RATIO (0.9-2.4); AST(SGOT) 13 U/L (15-37); Alanine Aminotransfer ALT/SGPT 23 U/L (13-56); Albumin, Serum 3.5 g/dL (3.2-5.0); Alkaline Phosphatase 65 U/L (45-117); Anion Gap 8 (5-15); BUN 10 mg/dL (7-18); BUN/Creat Ratio 13.3 RATIO (10-20); Calcium,Total 8.4 mg/dL (8.5-10.1); Chloride 106 mmol/L (98-107); Creatinine, Serum 0.75 mg/dL (0.55-1.02); EST Glomerular Filtration Rate 92 mL/min (>60); Est Glom Filt Rate - Afr Amer 112 mL/min (>60); Globulin 3.9 g/dL (2.2-4.2); Glucose 98 mg/dL (74-106); Protein, Total 7.4 g/dL (6.4-8.2); Sodium Level 140 mmol/L (136-145)
[2023-02-12] VITALS (7 sets, daily range): BP systolic 117–138; BP diastolic 76–91; PULSE 58–79; RESP 16–18; TEMP 36.3–36.9; O2SAT 98–100; BMI 38.7
[2023-02-12] MEDS: Lactated Ringers 1,000 ML 15 ML IV (06:21)
--- NOTE | 2023-02-12 07:15 | RAD_ITS ---
STUDY: X-RAY - LEFT FOOT CLINICAL: Female, 37 years old. PLANTAR FASCIOTOMY TECHNIQUE: 3 C-arm view(s) of the foot. 14 seconds fluoroscopy time COMPARISON: None. FINDINGS: 3 Limited C-arm images of the calcaneus provided. Mild plantar spur. Correlate with procedure note. Electronically Signed: Avtar Mohr MD at 22:52 EST , RAD/Foot min 3 Views IMPRESSION: undefined
[2023-02-12] MEDS: Cefazolin 2 GM in 0.9% Normal Saline (100mL Bag) 100 ML IV (07:39)
[2023-02-12] MEDS: Bupivacaine Mpf 0.5% 30 ML VIAL (08:11)
--- NOTE | 2023-02-12 08:23 | DCINST_ITS ---
Discharge Instructions Diet Discharge Diet: Light diet - advance as tolerated Activity Discharge Activity: May Not Drive Weight Bearing Status: No weight bearing (No weightbearing left foot) Keep extremity elevated above heart level: Left Leg (Keep left foot elevated for at least 50 minutes of every hour) Dressing / Incision Call your doctor if your incision/area has: Continuous Slow Oozing and Foul Smelling Discharge Call your doctor if you observe: Fever of 101 or Higher, Shortness of breath, Chest pain, Increased palpitations (irregular heartbeat), Calf discomfort and Uncontrolled pain Change Dressing in: do not change dressing Remove Dressing in: do not remove dressing Cleanse incision/area with: Keep Dressing Clean & Dry Follow Up Care Please Follow Up With: Franklin Dubose DPM When: Next week in office (Wednesday02/17/23), sooner if needed. Call Dr. Dubose if needed: [phone] (office), (cell) Test Results: Test results from this visit will be discussed in further detail at your follow- up appointment, if applicable. Discharge Plan Admission Attending Provider: Franklin Dubose Primary Care Provider: Trisha Alejandro Discharge Orders/Prescriptions Prescriptions: New hydrocodone-acetaminophen 5-325 mg tablet 1 - 2 tab PO Q6H PRN (Reason: pain) 4 Days Qty: 20 0RF No Action sertraline 100 mg tablet 100 mg PO QHS Referrals / Follow Up: Eduardo Yeung MD [Med Staff - Active Staff] - Disposition Disposition (needs filled in before D/C Order can be placed): Home, Self Care
--- NOTE | 2023-02-12 08:25 | OP.PCM_ITS ---
Report of Operation Date of Procedure: 02/12/23 Pre-Operative Diagnosis: Plantar fasciitis, left Infracalcaneal spur, left Post-Operative Diagnosis: Same Surgery/Procedure Performed:: Plantar fasciotomy with resection of infracalcaneal spur, left foot Surgeon: Franklin Dubose rubber compounder mixer: [place] Type of Anesthesia: Local and MAC Specimen's removed: None Estimated Blood Loss (mL): <1 mL Description of Procedure: Indications: This is a 37 year old female with chronic plantar fasciitis and heel spur syndrome on the left foot despite extensive nonsurgical care. She has elected to undergo surgical intervention - plantar fasciotomy with resection of infracalcaneal heel spur. This was discussed with her, reviewed the possible benefits vs risks, goals, expectations, alternative options, and typical healing/post op recovery. The consent forms were reviewed with her, and she freely signed them. No guarantees were given nor implied. No warranties were given. Operative Procedure: She was brought back into the operating room and was placed on the operating room table in the supine position. She was carefully secured to the operating room table with a safety belt around the waist. A time out was performed and the patient was properly identified and the surgical plan was confirmed. She received 2g of IV Cefazolin for antibiotic prophylaxis. A well padded pneumatic tourniquet was applied around the patient's left ankle. The patient received anesthesia per the anesthesiologist, and a total of 10mL of 0.5% Bupivacaine plain was given as a regional nerve block around the heel surgical site. The left foot was scrubbed, prepped, draped in the usual aseptic fashion. The left foot was exsanguinated using an Esmarch bandage and the ankle pneumatic tourniquet was inflated to 250mmHg. The infracalcaneal spur was visualized on intra operative fluoroscopy, image was saved. A skin incision was made to the medial hindfoot at the level of the plantar fascia and infracalcaneal spur, careful dissection was completed down through the subcutaneous tissue layer. A plane was created superiorly and inferiorly around the plantar fascia and the medial 50% of the plantar fascia was released via a plantar fasciotomy. It was noted there was significant thickening of the plantar fascia with fibrosis at this level consistent with chronic plantar fasciitis. The infracalcaneal spur was felt, and was carefully resected using a powered rasp. Resection of the infracalcaneal spur was confirmed using intraoperative fluoroscopy. Images pre and post infracalcaneal spur resection were saved. The site was flushed out with copious amounts of normal saline solution. The skin was reapproximated using 3-0 Nylon. An additional 8mL of 0.5% Bupivacaine plain was given as a regional nerve block around the heel surgical site to help with post operative pain control. A dressing was applied which consisted of Betadine soaked adaptic, 4x4 gauze, Kerlix and frankie bandage, being sure to apply it not to tight. The pneumatic tourniquet was deflated (total tourniquet time was 22 minutes), and there was immediate return of warmth and perfusion to the foot and to all toes on the foot with normal temperature gradient and CFT < 2 seconds to all toes. Hemostasis was achieved. The patient tolerated the above operative procedure well at the anesthesia well with no complication. The patient was transported to the recovery room with vital signs stable and in good condition. Post operative orders were placed. Post operative instructions were reviewed and dispensed verbal and written. No weightbearing left foot, keep left foot elevated for at least 50 minutes of every hour, keep dressing clean, dry and intact. Prescription for [place] (hydrocodone/acetaminophen) 1-2 tabs PO q 6 hours prn pain was prescribed. She is going to follow up with me next week in the office. Grafts/Implants Used: None Complications None
== END 2023-02-12 09:31 | disposition home or self-care (01) ==
LOC: SDC 05:57 → AC 05:57
PROVIDERS: PCP Family Medicine; Referring Provider Podiatrist; Visit Provider Podiatrist
PROC: (CPT 28119; principal; 2023-02-12 07:15)
DX: M72.2 Plantar fascial fibromatosis (principal); M77.32 Calcaneal spur, left foot; F41.9 Anxiety disorder, unspecified; F32.A Depression, unspecified; Z79.899 Other long term (current) drug therapy
CPT/HCPCS: 28119; 01480; 36415; 73630; 76000; 80053; 85025; J7120; J2405

== ENCOUNTER → 2023-03-08 | Outpatient (CLI) | payer BC, SELFPAY ==
[2023-03-08 15:36] LABS: Absolute Lymphocyte Count 2.22 X10^3/uL (0.83-4.51); Absolute Neutrophil Count 5.9 X10^3/uL (2.0-7.7); Basophil# 0.04 X10^3/uL; Basophil% 0.5 % (0-1); Eosinophil# 0.09 X10^3/uL; Hematocrit 39.3 % (37-47); Hemoglobin 13.4 g/dL (12.0-15.0); Lymphocyte # 2.22 X10^3/ul (0.83-4.51); Lymphocyte % 25.6 % (19-41); Mean Corp Hgb Conc 34.1 g/dL (32-36); Mean Corpuscular Hgb 28.8 pg (27.0-32.0); Mean Corpuscular Volume 84.5 fL (81-99); Mean Platelet Vol. 10.3 fl (6.2-12.0); Monocyte# 0.37 X10^3/uL; Monocyte% 4.3 % (0-10); NRBC Flagged by Analyzer 0 % (0-5); Neutrophil # 5.92 X10^3/uL (2.7-7.7); Neutrophil % 68.3 % (47-70); Platelet Count 275 K/mm3 (150-450); RBC Distribution Width CV 12.3 % (11.6-14.6); RBC Distribution Width SD 36.8 fl (35.1-43.9); Red Blood Count 4.65 M/mm3 (4.2-5.4); White Blood Count 8.7 K/mm3 (4.4-11.0)
[2023-03-08 15:47] LABS: Erythrocyte Sedimentation Rate 7 mm/hr (0-30)
[2023-03-08 16:05] LABS: Vitamin B12 483 pg/mL (211-911); Vitamin D,25 Hydroxy 33.5 ng/mL
[2023-03-08 16:06] LABS: Hemoglobin A1c 4.9 % (3.8-5.6)
[2023-03-08 16:10] LABS: ALB/GLOB Ratio 0.9 RATIO (0.9-2.4); AST(SGOT) 17 U/L (15-37); Alanine Aminotransfer ALT/SGPT 23 U/L (13-56); Albumin, Serum 3.6 g/dL (3.2-5.0); Alkaline Phosphatase 63 U/L (45-117); Anion Gap 7 (5-15); BUN 7 mg/dL (7-18); CRP 5.83 mg/L (0.0-3.0); Calcium,Total 8.7 mg/dL (8.5-10.1); Chloride 106 mmol/L (98-107); Cholesterol 161 mg/dL (200); Creatinine, Serum 0.64 mg/dL (0.55-1.02); EST Glomerular Filtration Rate 112 mL/min (>60); Est Glom Filt Rate - Afr Amer 136 mL/min (>60); Globulin 3.8 g/dL (2.2-4.2); Glucose 97 mg/dL (74-106); High Density Lipoprotein 51 mg/dL; Potassium 3.6 mmol/L (3.5-5.1); Protein, Total 7.4 g/dL (6.4-8.2); Rheumatoid Factor < 10.0 IU/mL (<15); Sodium Level 139 mmol/L (136-145); Thyroid Stim Hormone (TSH) 1.34 uIU/mL (0.358-3.74); Triglycerides 133 mg/dL; Uric Acid 5.1 mg/dL (2.6-6.0); Very Low Density Lipoprotein 27 mg/dL (5-40)
[2023-03-10 11:08] LABS: ANTINUCLEAR ANTIBODIES DIRECT Negative (Negative)
== END | disposition home or self-care (01) ==
LOC: MFPLAB 12:14
PROVIDERS: PCP Family Medicine; Visit Provider Family Medicine
DX: M79.10 Myalgia, unspecified site (principal); Z68.39 Body mass index [BMI] 39.0-39.9, adult
CPT/HCPCS: 36415; 80053; 80061; 82306; 82607; 83036; 83735; 84443; 84550; 85025; 85652; 86038; 86140; 86431

== ENCOUNTER → 2023-04-14 | Outpatient (CLI) | payer BC, SELFPAY ==
--- NOTE | 2023-04-14 11:25 | MRI_ITS ---
STUDY: MRI LEFT ANKLE WITHOUT CONTRAST REASON FOR EXAM: Female, 37 years old. Left ankle plantar fasciitis, peroneal tendinitis, capsulitis. TECHNIQUE: Standardized fat and water weighted pulse sequences were obtained in all 3 orthogonal planes. COMPARISON: Left ankle MRI dated 07/01/2022. FINDINGS: Normal posterior tibialis tendon. Normal flexor digitorum longus tendon. Normal flexor hallucis longus tendon. There is new minimal peroneal tenosynovitis (axial T2 series 4 image 18). Intact peroneus longus and brevis tendons. Normal tibialis anterior tendon. Normal extensor hallucis longus tendon. Normal extensor digitorum longus tendons. Normal Achilles tendon and teno-osseous insertion. There are new postoperative changes to the origin of the plantar fascia, with a concave calcaneal defect anterior to the plantar calcaneal tuberosity and reactive marrow edema throughout the plantar aspect of the calcaneus. Normal intrinsic muscles of the rearfoot. Normal distal tibiofibular syndesmotic ligamentous complex. Normal lateral ligamentous complex. Normal subtalar ligaments and sinus tarsi. Normal deltoid ligamentous complex. Normal plantar calcaneonavicular (spring) ligament. Normal tibiotalar articulation. Normal talar dome. There is a persistent tiny posterior subtalar joint effusion. Normal talonavicular articulation. Normal calcaneocuboid articulation. Normal navicular-cuneiform articulations. There is persistent minimal subcutaneous soft tissue edema along the medial and lateral aspects of the ankle. MRI/Lower Ext Joint Only (Routine) IMPRESSION: New postoperative changes to the origin of the plantar fascia, with a concave calcaneal defect anterior to the plantar calcaneal tuberosity and reactive marrow edema throughout the plantar aspect of the calcaneus. New minimal peroneal tenosynovitis. Persistent tiny posterior subtalar joint effusion. Persistent minimal subcutaneous soft tissue edema along the medial and lateral aspects of the ankle. Electronically Signed: Ben Kim MD at 14:21 EST ,
--- OUTSIDE RECORDS SUMMARY | 2023-04-14 11:38 | XMS RPT_ITS | CCD ---
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 RutledgeSharon Attending Unavail able Medications Completed/Discontinued Medications Medication Drug Class(es) Dates Sig (Normalized) Sig (Original) VIT-FE FUMARATE-FA (4 sources) Start: 11-02-2016 take 1 tablet by mouth once daily VITAMINS 28-0.8 MG TABS One tablet by mouth daily VIT-FE FUMARATE-FA [id number] Regi Quevedo MD Problems Active Problems Problem Classification Problem Date Documented Date Episodic/Chronic E Codes: Cut/pierceb (1 source) Contact with other sharp object(s), not elsewhere classified, initial encounter; Translations: [Contact with other sharp object(s), NEC, initial encounter] Onset: 05-13-2022 Episodic Medical examination/evaluatio n (2 sources) Encounter for general adult medical examination without abnormal findings; Translations: [Encounter for general adult medical examination without abnormal findings] Onset: 10-25-2017 Episodic Open wounds of extremities (2 sources) Unspecified open wound of right ring finger without damage to nail, initial encounter; Translations: [Unsp open wound of r rng fngr w/o damage to nail, init] Onset: 05-13-2022 Episodic Unclassified (4 sources) Screening for malignant neoplasm of cervix ; Translations: [Encounter for screening for malignant neoplasm of cervix] Onset: 11-02-2016 11-02-2016 Unclassified (4 sources) Gynecologic examination ; Translations: [Encounter for gynecological examination (general) (routine) without abnormal findings] Onset: 11-02-2016 11-02-2016 Unclassified (2 sources) Procedure carried out on subject; Translations: [Encounter for screening for human papillomavirus (HPV)] Onset: 11-02-2016 11-02-2016 Past or Other Problems Problem Classification Problem Date Documented Date Episodic/Chronic Contraceptive and procreative management (4 sources) Encounter for other general counseling and advice on procreation; Translations: [Encounter for other general counseling and advice on procreation] Onset: 11-02-2016 11-02-2016 Episodic Immunizations and screening for infectious disease (4 sources) Encounter for screening for human papillomavirus (HPV); Translations: [Encounter for screening for human papillomavirus (HPV)] Onset: 11-02-2016 11-02-2016 Episodic Results Test Name Value Interpretation Reference Range Facil ity Vital Signs Date Time Vital Sign Value Performing Clinician Faci lity 11-02-2016 08:30-0400 BMI (Body Mass Index) 36.46 kg/m2 Regi Quevedo MD [facility] [place] 11-02-2016 08:30-0400 Body Temperature 98.3 [degF] Regi Quevedo MD [facility] [place] 11-02-2016 08:30-0400 BP Diastolic 90 mm[Hg] Regi Quevedo MD [facility] [place] 11-02-2016 08:30-0400 BP Systolic 137 mm[Hg] Regi Quevedo MD [facility] [place] 11-02-2016 08:30-0400 Height 170.18 cm Regi Quevedo MD [facility] [place] 11-02-2016 08:30-0400 Pulse (Heart Rate) 59 /min Regi Quevedo MD [facility] [place] 11-02-2016 08:30-0400 Respiratory Rate 16 /min Regi Quevedo MD [facility] [place] 11-02-2016 08:30-0400 Weight 105.6 kg Regi Quevedo MD [facility] [place] Encounters Encounter Date Encounter Type Care Provider Facility Start: 05-13-2022 End: 05-13-2022 Emergency department patient visit Ms. 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 [employer] Start: 11-02-2016 Screening for malign ant neoplasm of cervix Screening, cervical cancer Angela Shepherd [employer] Plan of Treatment Date Care Activity Detail Author Start: 11-02-2016 End: 11-02-2016 Appointment Appointment [facility] Payers Date Payer Category Payer Unknown [id number] 1985 Unknown [id number] Unknown [id number] Unknown [id number] Social History Date Type Detail Facility Tobacco smoking status NHIS Unknown if ev er smoked [facility] Sex Assigned At Not on file [place] [facility] Summary Purpose Family History No Family History Records FoundNo Family History Records FoundNo Family History Records FoundNo Family History Records Found Advance Directives No Advanced Directives Records FoundNo Advanced Directives Records FoundNo Advanced Directives Records FoundNo Advanced Directives Records Found Additional Source Comments INFORMATION SOURCE (unrecogn ized section and content) DATE CREATED AUTHOR AUTHOR'S ORGANIZ ATION 10/25/2017 [facility] DATE CREATED AUTHOR AUTHOR'S ORGANIZ ATION 04/08/2018 [facility] DATE CREATED AUTHOR AUTHOR'S ORGANIZ ATION 05/16/2022 [facility] FOR RECORDS PERTAINING TO PATIENTS WHO ARE OR HAVE BEEN ENROLLED IN A CHEMICAL DEPENDENCY/SUBSTANCEABUSE PROGRAM, SOME INFORMATION MAY BE OMITTED. This clinical summary was aggregated from multiple sources. Caution should be exercised in using it in the provision of clinical care. This summary normalizes information from multiple sources, and as a consequence, information in this document may materially change the coding, format and clinical context of patient data. In addition, data may be omitted in some cases. CLINICAL DECISIONS SHOULD BE BASED ON THE PRIMARY CLINICAL RECORDS. [facility] [employer] [facility]. provides no warranty or guarantee of the accuracy or completeness of information in this document.
== END | disposition home or self-care (01) ==
PROVIDERS: PCP Family Medicine; Referring Provider Podiatrist; Visit Provider Podiatrist
DX: M72.2 Plantar fascial fibromatosis (principal); M77.52 Other enthesopathy of left foot and ankle; M76.72 Peroneal tendinitis, left leg
CPT/HCPCS: 73721

== ENCOUNTER → 2023-04-21 | Outpatient (CLI) | payer BC, SELFPAY ==
--- NOTE | 2023-04-21 13:21 | MRI_ITS ---
STUDY: MRI LEFT FOREFOOT WITHOUT CONTRAST REASON FOR EXAM: Female, 37 years old. Plantar fasciitis, anterolateral pain, pain 5th metatarsal area. TECHNIQUE: Standardized fat and water weighted pulse sequences were obtained in all 3 orthogonal planes. COMPARISON: None. FINDINGS: Normal bone marrow of the metatarsals, phalanges and visualized distal tarsal row, without fracture, periostitis, erosions or reactive bone edema. Normal sesamoids without sesamoiditis, fracture or avascular necrosis. Normal joint spaces, without effusions. There are no extraarticular fluid collections. Normal visualized Chopart and Lisfranc joints and normal Lisfranc ligament. Normal intermetatarsal spaces without intermetatarsal (Garcia) neuroma or bursitis. Normal visualized extensor digitorum longus, extensor hallucis longus, flexor digitorum brevis and flexor hallucis longus tendons. Normal visualized plantar fascia without fasciitis, fibromatosis or tear. Normal intrinsic muscles of the foot, without soft tissue masses or evidence of denervation atrophy. There is mild subcutaneous soft tissue edema along the dorsolateral aspect of the forefoot. There is no discrete fluid collection or drainable abscess. MRI/Lower Ext/No Jt/w/o IMPRESSION: Mild subcutaneous soft tissue edema along the dorsolateral aspect of the forefoot. No discrete fluid collection or drainable abscess. Normal fifth metatarsal. Electronically Signed: Ben Kim MD at 14:36 EST ,
== END | disposition home or self-care (01) ==
PROVIDERS: PCP Family Medicine; Referring Provider Podiatrist; Visit Provider Podiatrist
DX: M72.2 Plantar fascial fibromatosis (principal); M76.72 Peroneal tendinitis, left leg; M77.52 Other enthesopathy of left foot and ankle
CPT/HCPCS: 73718

== ENCOUNTER 2023-07-12 12:30 | Outpatient (RCR) | payer BC, SELFPAY ==
--- NOTE | 2023-05-04 08:11 | HP.PTEVAL ---
Patient's Visit Information Visit Information Visit Information: ADRIAN VIRGEN is a 37 year old F referred to Physical Therapy by Dr. Franklin Dubose DPM with a diagnosis of L peroneal tendinitis and subtalar effusion. Date of Evaluation: 05/03/23 Physical Therapist: Steve Davis DPT Visit Plan Frequency: 1x/Week Duration: 6 Weeks Plan: Update HEP next visit to include banded ex if pt appropriate, pt to become indep quickly with ex d/t cost. Dry needling as appropriate 1) GENTLE IASTM/STM to L peroneal tendons 2) L ankle AROM...can intro BAPS board, resisted ex, and eccentrics as pt tolerates 3) Foot intrinsic ex (marble pick-ups, towel scrunches, toe yoga) 4) Ankle stretching/gentle DF and distraction mobs prn 5) Ankle strengthening and WBing balance act as needed Subjective Subjective: Pt presents to PT s/p sx to remove heel spur in 2022. Pt now has tendonitis in lateral L ankle noticed right after sx, was 1 week NWB and then transitioned to CAM boot (walking in normal shoe now). Pt reports a feeling of instability in L ankle, having greatest difficulty with walking and steps (step to pattern). 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 Goes to personal training 3x per week, has no issues with recumbent bike or workouts. Pt is on Meloxicam for 3 weeks and uses ice, sometimes wears compression garment but has little relief. Pain is 7/10 at worst, best is 2/10 and takes time for flare up to calm down. Has an appointment with [employer] for custom orthotics in approx. a month. No running or hopping until 3 months post-op. Pain Left Ankle: Pain Intensity (Out of 10): 2 Pain Intensity Range: 1 and 7 Objective Objective: ROM: L DF 13 deg, PF 50 deg, INV 35 deg, EV 20 deg MMT: pain with resisted DF, toe ext, DF+EV most painful GAIT: normal, some excessive inv/ev in R ankle in stance phase STAIRS: step to pattern, descends with diagonal body position to avoid direct forward DF Balance/Special Test Scores Lower Extremity Functional Score: 47 Goals Goal 1:: Pt will demonstrate normal reciprocal pattern on stairs with no HR use Goal Time Frame: 4-6 Weeks Goal 2:: Pt will demonstrate 4+/5 L ankle strength with 0/10 pain Goal Time Frame: 4-6 Weeks Goal 3:: Pt will perform L SLS for >20s with 0/10 pain Goal Time Frame: 4-6 Weeks Goal 4:: Pt will report no tenderness or edema in lateral foot/ankle for 1 consecutive week Goal Time Frame: 4-6 Weeks Rehabilitation Potential Physical Therapy Diagnosis: Pt presents to PT with L ankle pain, weakness, and proprioceptive deficits following plantar fasciotomy procedure. Pt has no apparent issues with heel, but has symptoms consistent with peroneal tendinitis that increases with walking. Pt would benefit from PT services to address pain/inflammation, weakness, muscular endurance/stability, and ROM deficits that affect her work and recreational duties. Rehabilitation Potential: Good Anticipated Interventions Patient/Client Instruction: Educate patient on: Condition and Plan of Care For the Purpose of:: To decrease pain, To decrease swelling/inflammation, To increase ROM, To improve nutrient delivery to tissue, To improve muscle performance and motor function, To improve ability to perform ADL's, To increase tolerance to activity/condition/position, To improve performance and independence with ADL's, To improve ability of physical actions for home/community/work/leisure, To improve gait and locomotor functions, To improve health of tissue, To decrease soft tissue restriction, To increase flexibility/ROM, To assume or resume ADL's, To reduce risk of recurrence, To improve health and function, To improve self management, To improve ability to perform tasks related to life management and To improve tolerance to ADL's Therapeutic Exercise to Include: Strength training, Balance training, Flexibilty training, Gait and locomotor training, Passive ROM and Active ROM For the Purpose of:: To increase ROM, To improve ability to perform ADL's, To increase tolerance to activity/condition/position, To improve performance and independence with ADL's, To increase flexibility/ROM, To improve balance, To improve safety with gait, To improve safety and To improve ability to perform tasks related to life management Manual Therapy Techniques to Include: Mobilization, Passive ROM, Functional dry needling and Soft tissue mobilization For the Purpose of:: To decrease pain, To decrease swelling/inflammation, To increase ROM, To improve health of tissue, To decrease soft tissue restriction and To increase flexibility/ROM Iontophoresis (with Dexamethozone, with Acetic acid): Yes Cryotherapy (ice pack, ice massage): Yes For the Purpose of:: To decrease pain, To decrease swelling/inflammation, To improve nutrient delivery to tissue, To increase oxygenation perfusion, To improve muscle performance and motor function and To improve ability of physical actions for home/community/work/leisure Text: Thank you for the opportunity to evaluate your patient. For Medicare and Medicare HMO plans, please review the plan of care and approve it. It will need to be FAXED BACK to us at [phone] for Medicare purposes. For Medicare only, by signing this I certify the plan of care. Please let me know if there are questions or concerns regarding this plan of care. Physician Signature: Date:
== END 2023-07-12 19:00 | disposition home or self-care (01) ==
LOC: PT 12:30
PROVIDERS: PCP Family Medicine; Referring Provider Podiatrist; Visit Provider Podiatrist
DX: M77.32 Calcaneal spur, left foot (principal); M76.72 Peroneal tendinitis, left leg; Z98.890 Other specified postprocedural states
CPT/HCPCS: 97110; 97140; 97161; 97530

== ENCOUNTER 2024-09-11 08:43 | Outpatient (CLI) | payer BC, SELFPAY ==
[2024-09-11 11:04] LABS: Anion Gap 11 (5-15); BUN 9 mg/dL (4-19); BUN/Creat Ratio 12.4 RATIO (10-20); Calcium,Total 8.5 mg/dL (7.6-11.0); Carbon Dioxide 22.4 mmol/L (21.0-32.0); Chloride 105 mmol/L (98-108); Cholesterol 163 mg/dL (<=200); Creatinine, Serum 0.71 mg/dL (0.70-1.20); EST Glomerular Filtration Rate 113 (>60); Glucose 94 mg/dL (70-99); High Density Lipoprotein 45 mg/dL; Low Density Lipoprotein Calc. 104 mg/dL; Potassium 3.9 mmol/L (3.3-5.1); Sodium Level 138 mmol/L (133-145); Triglycerides 69 mg/dL; Very Low Density Lipoprotein 14 mg/dL (5-40)
== END 2024-09-11 23:59 | disposition home or self-care (01) ==
LOC: MFPLAB 08:43
PROVIDERS: PCP Family Medicine; Referring Provider Nurse Practitioner Family; Visit Provider Nurse Practitioner Family
DX: Z13.1 Encounter for screening for diabetes mellitus (principal); Z13.220 Encounter for screening for lipoid disorders
CPT/HCPCS: 36415; 80048; 80061